=== PATIENT | female | born 1965 | race Caucasian/White ===

== ENCOUNTER 2020-07-27 15:27 | Outpatient (REF) | payer OTHER, SELFPAY ==
--- NOTE | 2020-07-27 | MM_ITS ---
EXAMINATION: MM SCREENING DIGITAL BREAST TOMOSYNTHESIS, BILATERAL CLINICAL INFORMATION: Screening. Asymptomatic. The lifetime risk of breast cancer based on the Tyrer-Cuzick Model is 22%. COMPARISON: Mammography: 02/07/2019, 01/11/2018, 12/01/2016 TECHNIQUE: Digital breast tomosynthesis is performed in both the craniocaudal and mediolateral oblique views along with computer-aided detection (CAD). Synthesized 2D images are generated from the tomosynthesis. FINDINGS: The breasts are heterogeneously dense, which may obscure small masses (ACR BI-RADS breast composition Category c). There are no significant masses, abnormal calcifications, or other abnormalities. Parenchymal pattern is similar to prior studies. No developing density. The axilla and skin contours are unremarkable. MM/MM tomosynthesis screening BI IMPRESSION: No mammographic evidence of malignancy. ASSESSMENT: BI-RADS 1: Negative RECOMMENDATION: 1. Routine annual mammography screening. 2. The lifetime risk of breast cancer based on the Tyrer-Cuzick Model is 22%. Additional annual adjunct screening with breast MRI may be of benefit in women with a risk score of 20% or greater. This patient's information was entered into a reminder system with a target due date for their next mammogram.
== END 2020-07-27 15:28 | disposition home or self-care (01) ==
LOC: HO.MAMMO 15:27
PROVIDERS: PCP Internal Medicine; Visit Provider Internal Medicine
DX: Z12.31 Encounter for screening mammogram for malignant neoplasm of breast (principal)
CPT/HCPCS: 77063; 77067

== ENCOUNTER 2020-09-19 20:28 | Emergency (ER) | payer OTHER, SELFPAY ==
[2020-09-19 20:46] VITALS: BP 154/75; PULSE 94; RESP 18; TEMP 36.8; O2SAT 97
--- NOTE | 2020-09-19 20:54 | XR_ITS ---
EXAMINATION: PORTABLE CHEST 1 VIEW CLINICAL INFORMATION: SOB . COMPARISON: 05/14/2016. TECHNIQUE: Portable frontal view of the chest was obtained. FINDINGS: The lungs are well expanded. Coarsened reticular markings are seen bilaterally but no additional superimposed focal infiltrate, effusion, edema, or pneumothorax. Cardiac and mediastinal silhouettes are within normal limits for technique. No acute bony abnormality seen. XR/XR chest 1V IMPRESSION: Coarsened reticular markings bilaterally were not seen on the 2016 study but no other definitive acute process. Significance of this subtle finding is uncertain.
[2020-09-19 20:58] VITALS: BP 154/75; PULSE 94; RESP 18; TEMP 36.8; O2SAT 97; BMI 27.4
--- NOTE | 2020-09-19 23:43 | PC.NURSE ---
with patient at this time for primary evaluation. Will continue to monitor.
--- NOTE | 2020-09-19 23:54 | ED.URI ---
HPI - URI/Sore Throat General Chief Complaint: Upper Respiratory Symptoms Stated Complaint: SOB Time Seen by Provider: 09/19/20 20:54 Source: patient Mode of arrival: ambulatory Limitations: no limitations History of Present Illness HPI Narrative: Patient comes emergency room complaining of shortness of breath. Patient states that she was diagnosed with COVID-19 6 days ago. States that she has been doing very well. Today patient started feeling short of breath, patient is known to have asthma, she gave herself 2 albuterol palms, had no relief, then gave herself a nebulization treatment but had no relief. Patient complaining of pleuritic pain as well, states it is deep inside, unrelated to exertion Related Data Previous Rx's Medication Instructions Recorded atorvastatin 10 mg tablet 10 mg PO DAILY #90 tab 08/27/20 montelukast 10 mg tablet 10 mg PO BEDTIME #90 tab 09/11/20 Allergies Allergy/AdvReac Type Severity Reaction Status Date / Time No Known Allergies Allergy Unknown Verified 09/19/20 20:56 Review of Systems Review of Systems: Constitutional : No Weight loss, No Fever, No Chills, No Night Sweats, No Fatigue, No Malaise ENT/Mouth : No Hearing loss, No Ear Pain, No Nasal Congestion, No Sinus Pain, No Hoarseness, No sore throat, No Rhinorrhea, No Swallowing Difficulty Eyes: No Eye Pain, No Swelling, No Redness, No Foreign Body, No Discharge, No Vision Changes Cardiovascular : No Chest Pain, No SOB, No Dyspnea on Exertion, No Orthopnea, No Edema, No Palpitations Respiratory : No Cough, No Sputum, complaining of Wheezing, No Smoke Exposure, complaining of Dyspnea and pleuritic chest pain with deep inspirations, worse in the back Gastrointestinal : No Nausea, No Vomiting, No Diarrhea, No Constipation, No abdominal Pain, No Hematochezia, No Melena Genitourinary : no irregular bleeding, No Dysuria, No Urinary Frequency, No Hematuria, No Urinary Incontinence, No Urgency, No Flank Pain, No Urinary Flow Changes, No Hesitancy Musculoskeletal : No joint pain, No Myalgias, No Joint Swelling Skin : No Skin Lesions, No rash Neuro : No Weakness, No Numbness, No Paresthesias, No Loss of Consciousness, No Dizziness, No Headache Psych : No Anxiety/Panic, No Depression, No SI/HI/AH/VH, No Social Issues, Heme/Lymph: No Bruising, No Bleeding,No Lymphadenopathy Endocrine : No Polyuria, No Polydipsia, No Temperature Intolerance [facility] Past Medical History Medical History (Updated 09/20/20 @ 01:05 by Brenda Quigley MD) Asthma Patient denies medical problems Social History Social History Advance Directives: No Physical Exam Vital Signs: Vital Signs: Last Vital Signs Temp 98.3 F 09/19/20 20:58 Pulse 64 09/20/20 00:00 Resp 18 09/20/20 00:00 BP 154/92 H 09/20/20 00:00 Pulse Ox 99 09/20/20 00:00 Body Mass Index 27.4 Appearance: Alert. Oriented X3. No acute distress. Anxious Eyes: Pupils equal, round and reactive to light. ENT: Pharynx normal. Neck: Normal inspection. Neck supple. No lymph nodes noted. No crepitus CVS: Normal heart rate and rhythm. Pulses normal. Normal S1 and S2, no reproducible chest pain or back possible patient Respiratory: No respiratory distress. Breath sounds normal. No Wheezing. No rales Abdomen: Soft and nontender. No rigidity. No distention. good BS x4 Skin: Skin warm and dry. Normal skin color. Normal skin turgor. Extremities: No lower extremity edema. No lower extremity edema. No Lacerations. No Rash Neuro: Oriented X 3. No motor deficit. No sensory deficit. Moving all extermities. No slurred speech. Course Course Course Narrative: Patient's labs negative, D-dimer negative. Patient's pain likely secondary to pleurisy. Wells score for PE: 0 MDM - URI/Sore Throat Lab Data Result diagrams: 09/20/20 00:29 09/20/20 00:28 Labs: Lab Results 09/20/20 09/20/20 09/20/20 Range/Units 00:28 00:28 00:29 WBC 6.3 (4.8-10.8) X10*3/uL RBC 4.46 (4.20-5.50) X10*6/uL Hgb 12.8 (12.0-16.0) g/dl Hct 40.0 (37-47) % MCV 89.7 (80-98) fL MCH 28.7 (27.0-33.0) pg MCHC 32.0 (31.0-35.0) g/dl RDW 13.6 (11.0-16.0) % Plt Count 202 (160-400) X10*3/uL MPV 11.3 (9.4-12.3) fL Immature Gran % (Auto) 0.3 (0.0-0.4) % Neut % (Auto) 59.0 (45-73) % Lymph % (Auto) 28.0 (20-40) % [place] % (Auto) 11.0 (2-11) % Eos % (Auto) 1.4 (0-4) % Baso % (Auto) 0.3 (0-2) % Lymph # (Auto) 1.8 (1.2-4.9) X10*3/uL [place] # (Auto) 0.7 (0.1-1.2) X10*3/uL Eos # (Auto) 0.1 (0.0-0.4) X10*3/uL Baso # (Auto) 0.0 (0.0-0.2) X10*3/uL Abs Immat Gran (auto) 0.02 (0.00-0.03) X10*3/uL Absolute Neuts (auto) 3.7 (2.0-8.3) X10*3/uL Absolute Nucleated RBC 0.000 (0.0-0.012) X10*3/uL Nucleated RBC % (auto) 0.0 (0.0-0.2) /100WBC D-Dimer < 200 NG/ML Sodium 138 (135-145) mmol/L Potassium 3.7 (3.3-5.1) mmol/l Chloride 104 (96-108) mmol/L Carbon Dioxide 22 (22-29) mmol/L Anion Gap 16 (12-20) BUN 14 (9-16) mg/dL Creatinine 0.73 (0.5-1.4) mg/dL Estim Creat Clear Calc 89.1 Estimated GFR > 60 Random Glucose 103 (60-115) mg/dL Calcium 8.7 (8.4-10.2) mg/dL Imaging Data Chest x-ray: Radiologist's impression: The lungs are well expanded. Coarsened reticular markings are seen bilaterally but no additional superimposed focal infiltrate, effusion, edema, or pneumothorax. Cardiac and mediastinal silhouettes are within normal limits for technique. No acute bony abnormality seen. XR/XR chest 1V IMPRESSION: Coarsened reticular markings bilaterally were not seen on the 2016 study but no other definitive acute process. Significance of this subtle finding is uncertain. Discharge Plan Discharge Clinical Impression: Pleurisy Patient Disposition: Home, Self-Care Instructions: Pleurisy (ED) Additional Instructions: You may take Tylenol and alternate it with ibuprofen for pain. Please follow-up with your primary care physician tomorrow. If you have any worsening or new symptoms, please return to the emergency room or call 911 Prescriptions: No Action atorvastatin 10 mg tablet 10 mg PO DAILY Qty: 90 RF: 2 montelukast 10 mg tablet 10 mg PO BEDTIME Qty: 90 RF: 1
[2020-09-20] VITALS: BP 154/92; PULSE 64; RESP 18; O2SAT 99
[2020-09-20 00:43] LABS: MANUAL DIFF FLAG NO
[2020-09-20 00:44] LABS: Basophils Percent Auto 0.3 % (0-2); Eosinophils Absolute Auto 0.1 X10*3/uL (0.0-0.4); Eosinophils Percent Auto 1.4 % (0-4); Hemoglobin 12.8 g/dl (12.0-16.0); Imm Gran Abs Auto 0.02 X10*3/uL (0.00-0.03); Imm Gran Pct Auto 0.3 % (0.0-0.4); Lymphocytes Absolute Auto 1.8 X10*3/uL (1.2-4.9); Mean Corpuscular Hemoglobin 28.7 pg (27.0-33.0); Mean Corpuscular Volume 89.7 fL (80-98); Mean Platelet Volume 11.3 fL (9.4-12.3); Monocytes Absolute Auto 0.7 X10*3/uL (0.1-1.2); Neutrophils Absolute Auto 3.7 X10*3/uL (2.0-8.3); Platelet Count 202 X10*3/uL (160-400); Red Blood Count 4.46 X10*6/uL (4.20-5.50); Red Cell Distribution Width 13.6 % (11.0-16.0); White Blood Count 6.3 X10*3/uL (4.8-10.8)
[2020-09-20 00:54] LABS: D Dimer < 200 NG/ML
[2020-09-20 01:06] LABS: Anion Gap 16 (12-20); Blood Urea Nitrogen 14 mg/dL (9-16); Calcium 8.7 mg/dL (8.4-10.2); Carbon Dioxide 22 mmol/L (22-29); Chloride 104 mmol/L (96-108); Creatinine Clr Calc Pharmacy 89.1; Estimated Glomerular Filt Rate > 60; Glucose Random 103 mg/dL (60-115); Potassium 3.7 mmol/l (3.3-5.1); Sodium 138 mmol/L (135-145)
[2020-09-20] MEDS: dexAMETHasone 6 MG TABLET PO (01:18)
== END 2020-09-20 02:07 | disposition home or self-care (01) ==
PROVIDERS: Emergency Provider Emergency Medicine; PCP Internal Medicine
DX: R09.1 Pleurisy (principal); J45.909 Unspecified asthma, uncomplicated; Z86.16 Personal history of COVID-19; Z79.899 Other long term (current) drug therapy
CPT/HCPCS: 36415; 71045; 80048; 85025; 85379; 99283; 99284; J8540

== ENCOUNTER 2020-09-21 14:01 | Emergency (ER) | payer OTHER, SELFPAY ==
--- NOTE | 2020-09-21 14:46 | XR_ITS ---
EXAMINATION: XR CHEST CLINICAL INFORMATION: Shortness of breath. Covid positive. COMPARISON: Previous chest x-ray 09/19/2020 TECHNIQUE: Frontal view of the chest was obtained. FINDINGS: The cardiac and mediastinal contours are stable. There are increased coarse reticular markings seen in the lungs similar to previous recent chest x-ray. No definite infiltrate is seen. There is no pleural effusion or pneumothorax. Bony structures are unremarkable. XR/XR chest 1V IMPRESSION: Increased coarse reticular markings similar to recent exam. No infiltrate seen.
[2020-09-21 15:15] VITALS: BP 160/84; PULSE 67; RESP 18; TEMP 36.7; O2SAT 98; BMI 29.2
--- NOTE | 2020-09-21 15:40 | ED_ITS ---
HPI - SOB/Dyspnea General Chief Complaint: Dyspnea Stated Complaint: sob - covid+ Time Seen by Provider: 09/21/20 14:46 Source: patient Mode of arrival: ambulatory Limitations: no limitations History of Present Illness HPI Narrative: 55yoF c PMHx of asthma, bronchitis and pulmonary embolism was positive for COVID diagnosed 9 days ago presenting to the ED with complaints of persistent shortness of breath/wheezing despite taking her albuterol inhalers and nebulizer machines. Reports that she called her primary care provider today and started her on a taper prednisone she took 40 mg today. She was seen here on 09/20/2020 and had a full workup including a D-dimer which was negative and all other labs are within normal limits. She had a negative chest x-ray. Sent home with symptomatic treatment. Is not on any antibiotics. Reports she is very anxious about the diagnosis of having COVID. Denies any fevers, chills, dizziness, headaches, changes in vision, sore throat, chest pain, dyspnea on exertion, orthopnea, palpitations, lower extremity edema, symptoms or any other symptoms complaints or concerns at this time. Denies any SI/HI/auditory visual hallucinations thoughts of self-injury. Related Data Previous Rx's Medication Instructions Recorded atorvastatin 10 mg tablet 10 mg PO DAILY #90 tab 08/27/20 montelukast 10 mg tablet 10 mg PO BEDTIME #90 tab 09/11/20 prednisone 10 mg tablet See Rx Instructions PO DAILY #20 09/20/20 tab azithromycin See Rx Instructions .ROUTE 09/21/20 .COMPLEX #6 tab lorazepam [Ativan] 1 mg PO TID PRN #10 tab 09/21/20 Allergies Allergy/AdvReac Type Severity Reaction Status Date / Time No Known Allergies Allergy Unknown Verified 09/21/20 15:15 Review of Systems Review of Systems: Constitutional : No Fever, No Chills, No fatigue, No Malaise ENT/Mouth : No sore throat, No runny nose Eyes: No Discharge Cardiovascular : No Chest Pain, + SOB Respiratory : No Cough, No Sputum, No Wheezing, No Smoke Exposure, No Dyspnea Gastrointestinal : No Nausea, No Vomiting, No Diarrhea Genitourinary : No irregular bleeding, No Dysuria, No Urinary Frequency, No Hematuria, No Urinary Incontinence, No Urgency, No Flank Pain, Musculoskeletal : No Myalgia Skin : No rash Neuro : No Headache Yes all other systems are reviewed and are negative [facility] Past Medical History Attestation statement: The following information was validated with the patient. Medical History Asthma Patient denies medical problems Social History Social History Advance Directives: No Advance Directives Information Provided: No Physical Exam Vital Signs: Vital Signs: Last Vital Signs Temp 98.1 F 09/21/20 15:15 Pulse 67 09/21/20 15:15 Resp 18 09/21/20 15:15 BP 160/84 H 09/21/20 15:15 Pulse Ox 98 09/21/20 15:15 Body Mass Index 29.2 vital signs have been reviewed as normal and appeared to be correct. Blood pressure normal. Heart rate normal. Respiration rate normal. Temperature normal. Oxygen saturation normal. Appearance: Alert. Patient very anxious and tearful. Oriented X3. No acute distress. Head: Normal external exam. Normocephalic. Atraumatic. Eyes: PERRLA. EOMI. Conjunctiva and sclera normal. Eyelids normal. ENT: EAC normal. TM's Normal. Pharynx normal. Uvula midline. Moist mucous membranes. No trismus noted. No drooling noted. No muffled voice noted. Neck: Normal inspection. Neck supple. FROM. No adenopathy. Thyroid Normal. No meningeal signs. No neck mass noted. CVS: Normal heart rate and rhythm. Heart sound normal. No murmurs noted. Pulses normal throughout. Respiratory: No respiratory distress. Painless inspiration. Breath sounds normal. No wheezes/rales/rhonchi noted. Chest nontender. No accessory muscle usage noted or decreased air movement noted. Back: Full range of motion noted. Skin: Skin warm and dry. Normal skin color. Normal skin turgor. No rashes/lesions/lacerations noted. Extremities: No lower extremity edema. Extremities exhibit normal range of motion. Extremities nontender. Neuro: Oriented X 3. No motor deficit. No sensory deficit. Reflexes normal. Course Course Course Narrative: 55yoF c PMHx of asthma, bronchitis and pulmonary embolism was positive for COVID diagnosed 9 days ago presenting to the ED with complaints of persistent shortness of breath/wheezing despite taking her albuterol inhalers and nebulizer machines. Reports that she called her primary care provider today and started her on a taper prednisone she took 40 mg today. - patient had a full workup yesterday including a D-dimer was negative. - repeat chest x-ray negative for any acute processes only chronic changes. - I discussed with the patient that she should continue monitor her oxygen saturations at this time there at 97-98% on room air even with walking it does not drop. I explained her that she needs to measure this with walking. I explained to her that she needs to keep taking her prednisone, her albuterol inhalers and nebulizer solution treatments. - will DC home with a short course of Ativan and antibiotics and instructions return if any new or worsening symptoms. Patient understands agrees the plan. MDM - SOB/Dyspnea Medical Records Attestation: I reviewed the patient's medical records. Lab Data Attestation: I reviewed the patient's lab results. Imaging Data Chest x-ray: Attestation: I personally reviewed and interpreted this imaging study as follows: Radiologist's impression: FINDINGS: The cardiac and mediastinal contours are stable. There are increased coarse reticular markings seen in the lungs similar to previous recent chest x-ray. No definite infiltrate is seen. There is no pleural effusion or pneumothorax. Bony structures are unremarkable. XR/XR chest 1V IMPRESSION: Increased coarse reticular markings similar to recent exam. No infiltrate seen. Discharge Plan Discharge Clinical Impression: COVID-19, Anxiety Patient Disposition: Home, Self-Care Instructions: Anxiety (ED), COVID-19 (Coronavirus Disease 2019) (ED) Prescriptions: New azithromycin 250 mg tablet See Rx Instructions .ROUTE .COMPLEX Qty: 6 RF: 0 lorazepam [Ativan] 1 mg tablet 1 mg PO TID PRN (Reason: anxiety) Qty: 10 RF: 0 No Action atorvastatin 10 mg tablet 10 mg PO DAILY Qty: 90 RF: 2 montelukast 10 mg tablet 10 mg PO BEDTIME Qty: 90 RF: 1 prednisone 10 mg tablet See Rx Instructions PO DAILY Qty: 20 RF: 0 Referrals: Karina Ward MD [Primary Care Provider] - 2 days Stand Alone Forms: Work/School Release Print Language: Ethiopian
== END 2020-09-21 16:09 | disposition home or self-care (01) ==
PROVIDERS: Emergency Provider Emergency Medicine; PCP Internal Medicine
DX: U07.1 COVID-19 (principal); R06.02 Shortness of breath; F41.1 Generalized anxiety disorder; F43.0 Acute stress reaction
CPT/HCPCS: 71045; 99283

== ENCOUNTER 2020-10-11 08:17 | Outpatient (REF) | payer OTHER, SELFPAY ==
[2020-10-11 12:19] LABS: Alanine Aminotransferase 72 U/L (0-31); Anion Gap 17 (12-20); Aspartate Amino Transferase 41 U/L (5-31); Blood Urea Nitrogen 18 mg/dL (9-16); Calcium 8.8 mg/dL (8.4-10.2); Carbon Dioxide 26 mmol/L (22-29); Chloride 104 mmol/L (96-108); Cholesterol 207 mg/dL; Estimated Glomerular Filt Rate > 60; Glucose Fasting 95 mg/dL (60-99); HDL Cholesterol 59 mg/dL; LDL Cholesterol Calculated 116 mg/dl; Potassium 4.5 mmol/L (3.3-5.1); Sodium 142 mmol/L (135-145); Triglycerides 161 mg/dL
== END 2020-10-11 08:18 | disposition home or self-care (01) ==
LOC: HO.HMGCLDS 08:17
PROVIDERS: PCP Internal Medicine; Visit Provider Internal Medicine
DX: E78.2 Mixed hyperlipidemia (principal); J45.20 Mild intermittent asthma, uncomplicated
CPT/HCPCS: 36415; 80048; 80061; 84450; 84460

== ENCOUNTER 2020-10-27 19:43 | Emergency (ER) | payer OTHER, SELFPAY ==
--- NOTE | 2020-10-27 | ECG_ITS ---
Test Reason : CHEST PAIN Blood Pressure : / mmHG Vent. Rate : 069 BPM Atrial Rate : 069 BPM P-R Int : 152 ms QRS Dur : 072 ms QT Int : 398 ms P-R-T Axes : 021 039 024 degrees QTc Int : 426 ms Normal sinus rhythm Normal ECG When compared with ECG of 04-APR-2016 17:57, No significant change was found Referred By: Trent Haque Electronically Signed By:BRIONNA BRITTON MD
--- NOTE | ~2020-10-27 | CT_ITS ---
EXAMINATION: CT ANGIOGRAM OF THE CHEST WITH AND WITHOUT CONTRAST (CT PULMONARY ANGIOGRAM FOR PE) CLINICAL INFORMATION: Reason for Exam cp post covid COMPARISON: CTA chest 11/09/2014 TECHNIQUE: Prior to contrast administration, noncontrast localization images were obtained. Subsequently, multidetector volumetric imaging was performed from the thoracic inlet to below the diaphragms following the administration of 65 mL Omnipaque 350 intravenous contrast. No contrast reaction reported Sagittal, coronal, and MIP oblique sagittal reformatted images were obtained on the CT workstation, uploaded to PACS, and reviewed. This CT examination was performed using dose optimization techniques as appropriate, variously including the following: *Automated exposure control *Adjustment of mA and/or kV according to patient size (this includes techniques or standardized protocols for targeted exams where dose is matched to indication/reason for exam; i.e. extremities or head) *Use of iterative reconstruction technique Total exam dose-length product 189 mGy-cm FINDINGS: QUALITY OF STUDY/CONTRAST BOLUS: Satisfactory. PULMONARY ARTERIES: No central or segmental pulmonary emboli. THORACIC AORTA: No aneurysm or dissection. LUNG: No focal consolidation, nodules or masses. PLEURA: No pleural effusion or pneumothorax. MEDIASTINUM: Normal heart size. No pericardial effusion. No hilar or mediastinal lymphadenopathy. No evidence of septal bowing or right heart strain. CHEST WALL/AXILLA: No axillary or internal mammary lymphadenopathy. OSSEOUS STRUCTURES: No acute or suspicious osseous abnormality. UPPER ABDOMEN: Small hiatal hernia is present No reflux of contrast into the hepatic veins to suggest elevated right heart pressures. CT/CT angio chest PE protocol IMPRESSION: 1. No evidence of pulmonary emboli 2. No evidence of significant pulmonary parenchymal disease to suggest COVID pulmonary disease VTE: negative
[2020-10-27 19:45] VITALS: BP 135/85; PULSE 73; RESP 16; TEMP 36.6; O2SAT 94; BMI 27.6
[2020-10-27 20:00] VITALS: BP 142/80; PULSE 77; RESP 14; TEMP 36.6; O2SAT 96
--- NOTE | 2020-10-27 21:05 | ED.CHESTPAIN ---
HPI - Chest Pain General Chief Complaint: Chest Pain Stated Complaint: Chest pain Time Seen by Provider: 10/27/20 21:05 Source: patient Mode of arrival: ambulatory Limitations: no limitations History of Present Illness HPI narrative: Patient's history of COVID infection in 09/22 with history of asthma been feeling short of breath since then on prednisone complaining of 3 days of sharp chest pain especially in the left side and decrease air in the lungs since COVID. Patient denied any fever otherwise feeling fine. Patient denies any coronary artery disease history no history of chest pain in the past no palpitations MD complaint: chest pain Onset (ago): day(s) (3) Timing of current episode: episodic Prior episodes: No Onset: during rest Pain location: left chest Pain radiation: none Severity: mild Quality: sharp Exacerbating factors: nothing and palpation Context: recent illness Associated symptoms: dyspnea Treatment prior to arrival: none Related Data Previous Rx's Medication Instructions Recorded atorvastatin 10 mg tablet 10 mg PO DAILY #90 tab 08/27/20 montelukast 10 mg tablet 10 mg PO BEDTIME #90 tab 09/11/20 lorazepam [Ativan] 1 mg PO TID PRN #10 tab 09/21/20 budesonide-formoterol HFA 160 2 puff INHALATION Q12H #10.2 g 10/21/20 mcg-4.5 mcg/actuation aerosol inhaler Allergies Allergy/AdvReac Type Severity Reaction Status Date / Time No Known Allergies Allergy Unknown Verified 10/21/20 11:18 Review of Systems Review of Systems: Constitutional : No Weight loss, No Fever, No Chills ENT/Mouth : No sore throat, No Rhinorrhea Eyes: No Eye Pain, No Swelling Cardiovascular : + Chest Pain, no palpitations Respiratory : No Cough, No Sputum, +d shortness of breath Gastrointestinal : no Nausea, No Vomiting, No Diarrhea, No abdominal Pain, no black stools Genitourinary : No Dysuria, No Urinary Frequency Musculoskeletal : No joint pain, No Myalgias, No Joint Swelling Skin : No Skin Lesions, No rash Neuro : No Weakness, No Numbness, No Dizziness, No Headache Psych : No Anxiety/Panic, No Depression Heme/Lymph: No Bruising, No Lymphadenopathy Endocrine : No Polyuria, No Polydipsia All other systems reviewed and are negative PMFSH Past Medical History Medical History History of COVID-19 Menopause Mild intermittent asthma Mixed dyslipidemia Patient denies medical problems Pulmonary embolism Surgical History H/O breast biopsy H/O hemorrhoidectomy History of partial hysterectomy Family History Family History Father Diabetes mellitus Mother Arthritis Maternal Grandmother Breast cancer Maternal Aunt Breast cancer Brother No problems noted. Brother No problems noted. Sister No problems noted. Social History Social History Alcohol intake: never Smoking Status: Never smoker Advance Directives: No Physical Exam Vital Signs: Vital Signs: Last Vital Signs Temp 97.9 F 10/27/20 20:00 Pulse 77 10/27/20 20:00 Resp 14 10/27/20 20:00 BP 142/80 H 10/27/20 20:00 Pulse Ox 96 10/27/20 20:00 Body Mass Index 27.6 Appearance: Alert. Oriented X3. No acute distress. Eyes: Pupils equal, round and reactive to light. ENT: Pharynx normal. Neck: Normal inspection. Neck supple. CVS: Normal heart rate and rhythm. Pulses normal. Respiratory: No respiratory distress. Breath sounds normal. Tender to touch left 2nd intercostal space Abdomen: Soft and nontender. Bowel sounds are present, no mass palpable, no CVA tenderness Skin: Skin warm and dry. Normal skin color. Normal skin turgor. Extremities: No lower extremity edema. No calf tenderness Neuro: Oriented X 3. No motor deficit. No sensory deficit. MDM - Chest Pain MDM Narrative Medical decision making narrative: Patient has atypical chest pain unlikely cardiac origin EKG is normal cardiac enzymes negative we did CTA chest to rule out PE as she had history of COVID-19 which was also negative for any blood clots or any lung changes from COVID will discharge patient home Medical Records Data Attestation: I reviewed the patient's medical records. Lab Data Attestation: I reviewed the patient's lab results. Result diagrams: 10/27/20 21:25 10/27/20 21:25 Labs: Lab Results 10/27/20 10/27/20 10/27/20 Range/Units 21:25 21:25 21:25 WBC 9.5 (4.8-10.8) X10*3/uL RBC 4.53 (4.20-5.50) X10*6/uL Hgb 13.1 (12.0-16.0) g/dl Hct 40.7 (37-47) % MCV 89.8 (80-98) fL MCH 28.9 (27.0-33.0) pg MCHC 32.2 (31.0-35.0) g/dl RDW 13.2 (11.0-16.0) % Plt Count 212 (160-400) X10*3/uL MPV 12.0 (9.4-12.3) fL Immature Gran % (Auto) 0.3 (0.0-0.4) % Neut % (Auto) 68.7 (45-73) % Lymph % (Auto) 21.3 (20-40) % [place] % (Auto) 8.5 (2-11) % Eos % (Auto) 0.9 (0-4) % Baso % (Auto) 0.3 (0-2) % Lymph # (Auto) 2.0 (1.2-4.9) X10*3/uL [place] # (Auto) 0.8 (0.1-1.2) X10*3/uL Eos # (Auto) 0.1 (0.0-0.4) X10*3/uL Baso # (Auto) 0.0 (0.0-0.2) X10*3/uL Abs Immat Gran (auto) 0.03 (0.00-0.03) X10*3/uL Absolute Neuts (auto) 6.5 (2.0-8.3) X10*3/uL Absolute Nucleated RBC 0.000 (0.0-0.012) X10*3/uL Nucleated RBC % (auto) 0.0 (0.0-0.2) /100WBC Sodium 141 (135-145) mmol/L Potassium 4.4 (3.3-5.1) mmol/L Chloride 103 (96-108) mmol/L Carbon Dioxide 27 (22-29) mmol/L Anion Gap 15 (12-20) BUN 16 (9-16) mg/dL Creatinine 0.75 (0.5-1.4) mg/dL Estim Creat Clear Calc 87.0 Estimated GFR > 60 Random Glucose 104 (60-115) mg/dL Calcium 9.5 D (8.4-10.2) mg/dL Troponin I High Sens < 3.5 (<3.5-17.0) ng/L ECG Data ECG #1: Attestation: I personally reviewed and interpreted this ECG as follows: Interpretation: Normal sinus rhythm heart rate 69 beats per minute normal intervals normal axis no acute ST T wave changes impression normal EKG Discharge Plan Discharge Clinical Impression: Atypical chest pain Patient Disposition: Home, Self-Care Instructions: Chest Pain (ED) Additional Instructions: The chest pain is likely musculoskeletal origin. Follow up with PCP Prescriptions: No Action atorvastatin 10 mg tablet 10 mg PO DAILY Qty: 90 RF: 2 montelukast 10 mg tablet 10 mg PO BEDTIME Qty: 90 RF: 1 lorazepam [Ativan] 1 mg tablet 1 mg PO TID PRN (Reason: anxiety) Qty: 10 RF: 0 budesonide-formoterol [Symbicort] 160-4.5 mcg/actuation HFA aerosol inhaler 2 puff inhalation Q12H Qty: 10.2 RF: 0
[2020-10-27 21:31] LABS: MANUAL DIFF FLAG NO
[2020-10-27 21:37] LABS: Basophils Percent Auto 0.3 % (0-2); Eosinophils Absolute Auto 0.1 X10*3/uL (0.0-0.4); Eosinophils Percent Auto 0.9 % (0-4); Hematocrit 40.7 % (37-47); Hemoglobin 13.1 g/dl (12.0-16.0); Imm Gran Abs Auto 0.03 X10*3/uL (0.00-0.03); Imm Gran Pct Auto 0.3 % (0.0-0.4); Lymphocytes Percent Auto 21.3 % (20-40); Mean Corpuscular HGB Conc 32.2 g/dl (31.0-35.0); Mean Corpuscular Hemoglobin 28.9 pg (27.0-33.0); Mean Corpuscular Volume 89.8 fL (80-98); Monocytes Absolute Auto 0.8 X10*3/uL (0.1-1.2); Monocytes Percent Auto 8.5 % (2-11); Neutrophils Absolute Auto 6.5 X10*3/uL (2.0-8.3); Neutrophils Percent Auto 68.7 % (45-73); Platelet Count 212 X10*3/uL (160-400); Red Blood Count 4.53 X10*6/uL (4.20-5.50); Red Cell Distribution Width 13.2 % (11.0-16.0); White Blood Count 9.5 X10*3/uL (4.8-10.8)
[2020-10-27 21:55] LABS: Anion Gap 15 (12-20); Blood Urea Nitrogen 16 mg/dL (9-16); Calcium 9.5 mg/dL (8.4-10.2); Carbon Dioxide 27 mmol/L (22-29); Chloride 103 mmol/L (96-108); Estimated Glomerular Filt Rate > 60; Glucose Random 104 mg/dL (60-115); Potassium 4.4 mmol/L (3.3-5.1); Sodium 141 mmol/L (135-145)
[2020-10-27 22:00] VITALS: BP 128/74; PULSE 78; RESP 16; TEMP 36.7; O2SAT 99
[2020-10-27 22:00] LABS: Troponin-I High Sensitivity < 3.5 ng/L (<3.5-17.0)
[2020-10-27] MEDS: iohexoL 350 MG/ML 100 ML INFUS..BTL IV (22:12)
== END 2020-10-27 23:14 | disposition home or self-care (01) ==
PROVIDERS: Emergency Provider Internal Medicine; PCP Internal Medicine
DX: R07.89 Other chest pain (principal); J45.909 Unspecified asthma, uncomplicated; Z86.16 Personal history of COVID-19; Z86.711 Personal history of pulmonary embolism; Z79.02 Long term (current) use of antithrombotics/antiplatelets; Z79.899 Other long term (current) drug therapy
CPT/HCPCS: 36415; 71275; 80048; 84484; 85025; 93005; 99284; Q9967

== ENCOUNTER 2021-02-07 17:51 | Emergency (ER) | payer OTHER, SELFPAY ==
--- NOTE | ~2021-02-07 | CT_ITS ---
EXAMINATION: CT ANGIOGRAM OF THE CHEST WITH AND WITHOUT CONTRAST (CT PULMONARY ANGIOGRAM FOR PE) CLINICAL INFORMATION: Reason for Exam sob post covid COMPARISON: CT angiogram chest 10/27/2020 TECHNIQUE: Prior to contrast administration, noncontrast localization images were obtained. Subsequently, multidetector volumetric imaging was performed from the thoracic inlet to below the diaphragms following the administration of 65 mL Omnipaque 350 intravenous contrast. No contrast reaction reported Sagittal, coronal, and MIP oblique sagittal reformatted images were obtained on the CT workstation, uploaded to PACS, and reviewed. This CT examination was performed using dose optimization techniques as appropriate, variously including the following: *Automated exposure control *Adjustment of mA and/or kV according to patient size (this includes techniques or standardized protocols for targeted exams where dose is matched to indication/reason for exam; i.e. extremities or head) *Use of iterative reconstruction technique Total exam dose-length product 286 mGy-cm FINDINGS: QUALITY OF STUDY/CONTRAST BOLUS: Satisfactory. PULMONARY ARTERIES: No central or segmental pulmonary emboli. THORACIC AORTA: No aneurysm or dissection. LUNG: No focal consolidation, nodules or masses. Some nonspecific dependent groundglass changes are present, more so than previous. PLEURA: No pleural effusion or pneumothorax. MEDIASTINUM: Normal heart size. No pericardial effusion. No hilar or mediastinal lymphadenopathy. No evidence of septal bowing or right heart strain. CHEST WALL/AXILLA: No axillary or internal mammary lymphadenopathy. OSSEOUS STRUCTURES: No acute or suspicious osseous abnormality. UPPER ABDOMEN: Unremarkable. No reflux of contrast into the hepatic veins to suggest elevated right heart pressures. CT/CT angio chest PE protocol IMPRESSION: 1. No acute intrathoracic disease 2. No evidence of pulmonary emboli 3. No evidence of Covid pneumonia 4. A cause for the patient's shortness of breath has not been found VTE: negative
[2021-02-07 18:05] VITALS: BP 135/79; PULSE 78; RESP 20; TEMP 36.8; O2SAT 100; BMI 27.3
[2021-02-07 20:37] VITALS: BP 150/83; PULSE 69; RESP 20; O2SAT 100
--- NOTE | 2021-02-07 20:37 | ED.ASTHMA ---
HPI - Asthma General Chief Complaint: Asthma Stated Complaint: asthma Time Seen by Provider: 02/07/21 20:37 Source: patient Mode of arrival: ambulatory Limitations: no limitations History of Present Illness HPI Narrative: Patient history of asthma rarely uses inhaler feeling short of breath for last few days using inhaler not getting enough air saturating 100% at room air on arrival was COVID positive in September that time CT a chest was negative for any infiltrate or PE patient denies any leg pain or swelling no chest pain Related Data Home Medications Medication Instructions Recorded Confirmed albuterol sulfate 2.5 mg INHALATION Q4-6H PRN 02/09/21 02/10/21 Previous Rx's Medication Instructions Recorded atorvastatin 10 mg tablet 10 mg PO DAILY #90 tab 08/27/20 montelukast 10 mg tablet 10 mg PO BEDTIME #90 tab 09/11/20 lorazepam [Ativan] 1 mg PO TID PRN #10 tab 09/21/20 budesonide-formoterol HFA 160 2 puff INHALATION Q12H #10.2 g 01/06/21 mcg-4.5 mcg/actuation aerosol inhaler albuterol sulfate 90 mcg/actuation 2 puff INHALATION Q4-6H PRN #8.5 g 02/06/21 aerosol inhaler prednisone 40 mg PO DAILY #10 tab 02/07/21 inhalational spacing device #1 ea 02/09/21 Allergies Allergy/AdvReac Type Severity Reaction Status Date / Time No Known Allergies Allergy Unknown Verified 02/10/21 00:04 Review of Systems Review of Systems: Constitutional : No Weight loss, No Fever, No Chills ENT/Mouth : No sore throat, No Rhinorrhea Eyes: No Eye Pain, No Swelling Cardiovascular : No Chest Pain, no palpitations Respiratory : No Cough, No Sputum, + shortness of breath Gastrointestinal : no Nausea, No Vomiting, No Diarrhea, No abdominal Pain, no black stools Genitourinary : No Dysuria, No Urinary Frequency Musculoskeletal : No joint pain, No Myalgias, No Joint Swelling Skin : No Skin Lesions, No rash Neuro : No Weakness, No Numbness, No Dizziness, No Headache Psych : No Anxiety/Panic, No Depression Heme/Lymph: No Bruising, No Lymphadenopathy Endocrine : No Polyuria, No Polydipsia All other systems reviewed and are negative PMFSH Past Medical History Medical History 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 Brother No problems noted. Sister No problems noted. Social History Social History Alcohol intake: never Patient Tobacco Use Status: Never used Tobacco Physical Exam Vital Signs: Vital Signs: Last Vital Signs Temp 98.2 F 02/07/21 18:05 Pulse 80 02/07/21 22:38 Resp 20 02/07/21 22:38 BP 116/77 02/07/21 22:38 Pulse Ox 100 02/07/21 22:38 Body Mass Index 27.3 Appearance: Alert. Oriented X3. No acute distress. Eyes: PERRLA, No Nystagmus ENT: Pharynx normal. Oral Mucosa moist Neck: Normal inspection. Neck supple. CVS: Normal heart rate and rhythm. Pulses normal. Respiratory: No respiratory distress. Decrease entry bilateral, no wheezing/rales/rhonchi Abdomen: Soft and nontender. Bowel sounds are present, no mass palpable, no CVA tenderness Skin: Skin warm and dry. Normal skin color. Normal skin turgor. Extremities: No lower extremity edema. No calf tenderness Neuro: Oriented X 3. No motor deficit. No sensory deficit.No cerebellar signs , cranial nerves II-XII intact MDM - Asthma Medical Records Medical records narrative: Patient negative workup CTA chest negative for infiltrate or PE likely patient has asthma will discharge patient home on prednisone and albuterol Lab Data Attestation: I reviewed the patient's lab results. Result diagrams: 02/07/21 20:53 02/07/21 20:53 Labs: Lab Results 02/07/21 02/07/21 Range/Units 20:53 20:53 WBC 9.7 (4.8-10.8) X10*3/uL RBC 4.42 (4.20-5.50) X10*6/uL Hgb 12.5 (12.0-16.0) g/dl Hct 38.9 (37-47) % MCV 88.0 (80-98) fL MCH 28.3 (27.0-33.0) pg MCHC 32.1 (31.0-35.0) g/dl RDW 13.0 (11.0-16.0) % Plt Count 197 (160-400) X10*3/uL MPV 11.5 (9.4-12.3) fL Immature Gran % (Auto) 0.3 (0.0-0.4) % Neut % (Auto) 64.2 (45-73) % Lymph % (Auto) 25.0 (20-40) % [place] % (Auto) 8.8 (2-11) % Eos % (Auto) 1.2 (0-4) % Baso % (Auto) 0.5 (0-2) % Lymph # (Auto) 2.4 (1.2-4.9) X10*3/uL [place] # (Auto) 0.9 (0.1-1.2) X10*3/uL Eos # (Auto) 0.1 (0.0-0.4) X10*3/uL Baso # (Auto) 0.1 (0.0-0.2) X10*3/uL Abs Immat Gran (auto) 0.03 (0.00-0.03) X10*3/uL Absolute Neuts (auto) 6.2 (2.0-8.3) X10*3/uL Absolute Nucleated RBC 0.000 (0.0-0.012) X10*3/uL Nucleated RBC % (auto) 0.0 (0.0-0.2) /100WBC Sodium 139 (135-145) mmol/L Potassium 4.1 (3.3-5.1) mmol/L Chloride 102 (96-108) mmol/L Carbon Dioxide 26 (22-29) mmol/L Anion Gap 15 (12-20) BUN 14 (9-16) mg/dL Creatinine 0.75 (0.5-1.4) mg/dL Estim Creat Clear Calc 86.7 Estimated GFR > 60 Random Glucose 90 (60-115) mg/dL Calcium 9.6 (8.4-10.2) mg/dL Discharge Plan Discharge Clinical Impression: Asthma with acute exacerbation Qualifiers: Asthma severity: moderate Asthma persistence: persistent Qualified Code(s): J45.41 - Moderate persistent asthma with (acute) exacerbation Patient Disposition: Home, Self-Care Instructions: Asthma (ED) Additional Instructions: Taking medications as advised, and follow-up with PCP Prescriptions: New prednisone 20 mg tablet 40 mg PO DAILY Qty: 10 RF: 0 No Action atorvastatin 10 mg tablet 10 mg PO DAILY Qty: 90 RF: 2 montelukast 10 mg tablet 10 mg PO BEDTIME Qty: 90 RF: 1 budesonide-formoterol [Symbicort] 160-4.5 mcg/actuation HFA aerosol inhaler 2 puff inhalation Q12H Qty: 10.2 RF: 5 albuterol sulfate 90 mcg/actuation HFA aerosol inhaler 2 puff inhalation Q4-6H PRN (Reason: shortness of breath or wheezing) Qty: 8.5 RF: 0 lorazepam [Ativan] 1 mg tablet 1 mg PO TID PRN (Reason: anxiety) Qty: 10 RF: 0 albuterol sulfate 2.5 mg /3 mL (0.083 %) solution for nebulization 2.5 mg inhalation Q4-6H PRNRF: 0 (DME) BreatheRite MDI Spacer Spacer See Rx Instructions .ROUTE .MEDSUPPLY Qty: 1 RF: 0 Interventions: ED Discharge Assessment Last Done: 02/07/21 22:40 Discharge Date/Time: 02/07/21 22:41
[2021-02-07] MEDS: Albuterol/Iprat 2.5/0.5MG 3 ML AMPUL.NEB INHALE (20:56)
[2021-02-07 20:57] VITALS: PULSE 68; O2SAT 100
[2021-02-07 20:58] LABS: MANUAL DIFF FLAG NO
[2021-02-07 21:00] LABS: Basophils Absolute Auto 0.1 X10*3/uL (0.0-0.2); Basophils Percent Auto 0.5 % (0-2); Eosinophils Absolute Auto 0.1 X10*3/uL (0.0-0.4); Eosinophils Percent Auto 1.2 % (0-4); Hematocrit 38.9 % (37-47); Hemoglobin 12.5 g/dl (12.0-16.0); Imm Gran Abs Auto 0.03 X10*3/uL (0.00-0.03); Imm Gran Pct Auto 0.3 % (0.0-0.4); Lymphocytes Absolute Auto 2.4 X10*3/uL (1.2-4.9); Mean Corpuscular HGB Conc 32.1 g/dl (31.0-35.0); Mean Corpuscular Hemoglobin 28.3 pg (27.0-33.0); Mean Platelet Volume 11.5 fL (9.4-12.3); Monocytes Absolute Auto 0.9 X10*3/uL (0.1-1.2); Monocytes Percent Auto 8.8 % (2-11); Neutrophils Absolute Auto 6.2 X10*3/uL (2.0-8.3); Neutrophils Percent Auto 64.2 % (45-73); Platelet Count 197 X10*3/uL (160-400); Red Blood Count 4.42 X10*6/uL (4.20-5.50); White Blood Count 9.7 X10*3/uL (4.8-10.8)
[2021-02-07] MEDS: methylPREDNISolone Sod Succ 125 MG/2 ML VIAL IVPUSH (21:07)
[2021-02-07 21:30] LABS: Anion Gap 15 (12-20); Blood Urea Nitrogen 14 mg/dL (9-16); Calcium 9.6 mg/dL (8.4-10.2); Carbon Dioxide 26 mmol/L (22-29); Chloride 102 mmol/L (96-108); Creatinine Clr Calc Pharmacy 86.7; Estimated Glomerular Filt Rate > 60; Glucose Random 90 mg/dL (60-115); Potassium 4.1 mmol/L (3.3-5.1); Sodium 139 mmol/L (135-145)
[2021-02-07] MEDS: iohexoL 350 MG/ML 100 ML INFUS..BTL IV (21:44)
[2021-02-07 21:55] VITALS: BP 118/78; PULSE 82; RESP 20; O2SAT 99
[2021-02-07 22:00] VITALS: BP 116/80; PULSE 77; RESP 20; O2SAT 99
[2021-02-07 22:38] VITALS: BP 116/77; PULSE 80; RESP 20; O2SAT 100
== END 2021-02-07 22:41 | disposition home or self-care (01) ==
PROVIDERS: Emergency Provider Internal Medicine; PCP Internal Medicine
DX: J45.41 Moderate persistent asthma with (acute) exacerbation (principal); Z86.16 Personal history of COVID-19; Z86.711 Personal history of pulmonary embolism; Z79.02 Long term (current) use of antithrombotics/antiplatelets; Z79.899 Other long term (current) drug therapy
CPT/HCPCS: 36415; 71275; 80048; 85025; 94640; 96374; 99284; J2930; Q9967

== ENCOUNTER → 2021-03-17 14:25 | Outpatient (BNVA) | payer OTHER, SELFPAY | PROVIDERS: PCP Internal Medicine; Visit Provider Hospitalist ==

== ENCOUNTER 2021-03-24 07:22 | Outpatient (REF) | payer OTHER, SELFPAY ==
[2021-03-24 08:23] LABS: MANUAL DIFF FLAG NO
[2021-03-24 08:24] LABS: Basophils Percent Auto 0.3 % (0-2); Eosinophils Absolute Auto 0.1 X10*3/uL (0.0-0.4); Eosinophils Percent Auto 0.8 % (0-4); Hematocrit 40.1 % (37-47); Hemoglobin 12.8 g/dl (12.0-16.0); Imm Gran Abs Auto 0.05 X10*3/uL (0.00-0.03); Imm Gran Pct Auto 0.4 % (0.0-0.4); Lymphocytes Absolute Auto 1.3 X10*3/uL (1.2-4.9); Lymphocytes Percent Auto 10.7 % (20-40); Mean Corpuscular HGB Conc 31.9 g/dl (31.0-35.0); Mean Corpuscular Volume 87.7 fL (80-98); Mean Platelet Volume 12.1 fL (9.4-12.3); Monocytes Absolute Auto 0.9 X10*3/uL (0.1-1.2); Neutrophils Absolute Auto 10.1 X10*3/uL (2.0-8.3); Neutrophils Percent Auto 80.8 % (45-73); Platelet Count 216 X10*3/uL (160-400); Red Blood Count 4.57 X10*6/uL (4.20-5.50); Red Cell Distribution Width 13.4 % (11.0-16.0); White Blood Count 12.5 X10*3/uL (4.8-10.8)
[2021-03-24 09:10] LABS: Alanine Aminotransferase 24 U/L (0-31); Albumin Level 4.4 g/dL (3.5-5.0); Alkaline Phosphatase 121 U/L (39-117); Anion Gap 14 (12-20); Aspartate Amino Transferase 23 U/L (5-31); Bilirubin Total 0.7 mg/dL (0.0-1.0); Blood Urea Nitrogen 15 mg/dL (9-16); Calcium 9.4 mg/dL (8.4-10.2); Carbon Dioxide 25 mmol/L (22-29); Chloride 106 mmol/L (96-108); Cholesterol 203 mg/dL; Estimated Glomerular Filt Rate > 60; Glucose Fasting 91 mg/dL (60-99); HDL Cholesterol 67 mg/dL; LDL Cholesterol Calculated 116 mg/dl; Potassium 4.3 mmol/L (3.3-5.1); Sodium 141 mmol/L (135-145); Total Protein 7.5 g/dL (6.5-8.0); Triglycerides 102 mg/dL
[2021-03-24 09:22] LABS: Vitamin D 25-OH Total 45.9 ng/mL (>30)
[2021-03-24 09:56] LABS: Erythrocyte Sedimentation Rate 25 MM/HR (0-20)
[2021-03-27 22:11] LABS: Anti Nuclear Antibody Screen POSITIVE (NEGATIVE)
[2021-03-30 13:22] LABS: Asperg fumigatus Precip Abs NEGATIVE (NEGATIVE); Micropoly faeni Abs NEGATIVE (NEGATIVE); Pigeon serum Abs NEGATIVE (NEGATIVE); Saccharo pora viridis Abs NEGATIVE (NEGATIVE); Thermo candidus Abs NEGATIVE (NEGATIVE); Thermoa vulgaris #1 NEGATIVE (NEGATIVE)
== END 2021-03-24 07:23 | disposition home or self-care (01) ==
LOC: HO.LAB 07:22
PROVIDERS: PCP Internal Medicine; Visit Provider Hospitalist
DX: E78.2 Mixed hyperlipidemia (principal); J45.20 Mild intermittent asthma, uncomplicated; Z78.0 Asymptomatic menopausal state; B94.8 Sequelae of other specified infectious and parasitic diseases; J18.9 Pneumonia, unspecified organism; R91.8 Other nonspecific abnormal finding of lung field
CPT/HCPCS: 36415; 80053; 80061; 82306; 82785; 85025; 85652; 86003; 86038; 86039; 86331; 86606; 86609

== ENCOUNTER 2021-03-28 16:00 | Outpatient (REF) | payer OTHER, SELFPAY ==
--- NOTE | 2021-03-28 17:32 | PFT_ITS ---
INDICATION: Pneumonia. SPIROMETRY: The FEV1 to FVC 90% with an FEV1 of 2.98 L, which is 106% predicted, and an FVC of 3.31 L, which is 91% predicted. No significant response to bronchodilators noted. Maximum voluntary ventilation 97% predicted. LUNG VOLUMES: Total lung capacity 89% predicted with diffusion capacity of 76% predicted. COMPARISONS: None available. INTERPRETATION: No obstructive nor restrictive ventilatory defects identified. No significant response to bronchodilators noted. Normal maximum voluntary ventilation. Lung volumes are low normal, but otherwise stable and the patient does have an isolated mild diffusion impairment. Clinical correlation warranted. Mj Reece MD MR/MODL / [id number]
== END 2021-03-28 16:01 | disposition home or self-care (01) ==
LOC: HO.RESP 16:00
PROVIDERS: PCP Internal Medicine; Visit Provider Hospitalist
DX: G47.33 Obstructive sleep apnea (adult) (pediatric) (principal); J18.9 Pneumonia, unspecified organism
CPT/HCPCS: 94060; 94727; 94729

== ENCOUNTER → 2021-04-17 14:51 | Outpatient (BNVA) | payer OTHER, SELFPAY | PROVIDERS: PCP Internal Medicine; Visit Provider Hospitalist | DX: J18.9 Pneumonia, unspecified organism (principal); B94.8 Sequelae of other specified infectious and parasitic diseases; R91.8 Other nonspecific abnormal finding of lung field; G47.33 Obstructive sleep apnea (adult) (pediatric) ==

== ENCOUNTER → 2021-05-29 08:59 | Outpatient (REF) | payer OTHER, SELFPAY | LOC: HO.SL 08:59 | PROVIDERS: PCP Internal Medicine; Visit Provider Hospitalist | DX: G47.33 Obstructive sleep apnea (adult) (pediatric) (principal) | CPT/HCPCS: 95806 ==

== ENCOUNTER → 2021-06-13 14:52 | Outpatient (BNVA) | payer OTHER, SELFPAY | PROVIDERS: PCP Internal Medicine; Visit Provider Hospitalist ==

== ENCOUNTER 2021-07-31 03:02 | Emergency (ER) | payer OTHER, SELFPAY ==
--- NOTE | ~2021-07-31 | XR_ITS ---
EXAMINATION: XR CHEST CLINICAL INFORMATION: Asthma, cough, shortness of breath COMPARISON: 02/07/2021 TECHNIQUE: Frontal view of the chest was obtained. FINDINGS: The lungs are clear with no focal consolidation. No evidence of pneumothorax, pulmonary edema, or pleural effusions. The cardiomediastinal silhouette is unremarkable. No acute osseous findings. XR/XR chest 1V IMPRESSION: No acute cardiopulmonary findings.
[2021-07-31 03:20] VITALS: BP 129/90; PULSE 85; RESP 18; TEMP 36.6; O2SAT 97; BMI 27.4
[2021-07-31 03:57] LABS: COVID-19 Test Negative (Negative); IDNOW Serial# 9DD0AD1C
--- NOTE | 2021-07-31 05:44 | ED.ASTHMA ---
HPI - Asthma General Chief Complaint: Upper Respiratory Symptoms Stated Complaint: asthma Time Seen by Provider: 07/31/21 05:44 Source: patient Mode of arrival: ambulatory History of Present Illness HPI Narrative: 56-year-old female with history of asthma presents with awakening from sleep and feeling short of breath for which she took repeated albuterol treatments and did not feel that she was getting better in so came into the emergency room. Otherwise, she states that she is COVID-19 vaccinated and reports at time of interview that she is feeling much better. She denies any associated fever, chills and at this time is declining a short course of steroids. Related Data Home Medications Medication Instructions Recorded Confirmed albuterol sulfate 2.5 mg INHALATION Q4-6H PRN 02/09/21 03/21/21 Previous Rx's Medication Instructions Recorded lorazepam 1 mg tablet (Ativan) 1 mg PO TID PRN #10 tab 09/21/20 budesonide-formoterol HFA 160 2 puff INHALATION Q12H #10.2 g 01/06/21 mcg-4.5 mcg/actuation aerosol inhaler (Symbicort) albuterol sulfate 90 mcg/actuation 2 puff INHALATION Q4-6H PRN #8.5 g 02/06/21 aerosol inhaler prednisone 20 mg tablet 40 mg PO DAILY #10 tab 02/07/21 inhalational spacing device #1 ea 02/09/21 (BreatheRite MDI Spacer) montelukast 10 mg tablet 10 mg PO BEDTIME #90 tab 02/13/21 tiotropium bromide 2.5 2 puff INHALATION DAILY 30 Days #1 03/17/21 mcg/actuation mist for inhalation ea (Spiriva Respimat) loratadine 10 mg tablet (Claritin) 10 mg PO DAILY 30 Days #30 tab 04/17/21 atorvastatin 10 mg tablet 10 mg PO DAILY #90 tab 05/24/21 Allergies Allergy/AdvReac Type Severity Reaction Status Date / Time No Known Allergies Allergy Unknown Verified 06/13/21 15:00 Review of Systems Review of Systems: Pertinent positives and negatives as stated in HPI 10 point review of systems is otherwise negative. PMFSH Past Medical History Source: nursing notes reviewed Medical History Asthma Chronic allergic rhinitis Chronic [id number] syndrome History of COVID-19 Loud snoring Menopause Mild intermittent asthma Mixed dyslipidemia THOMAS (obstructive sleep apnea) Patient denies medical problems Pneumonitis Pulmonary embolism Witnessed episode of apnea Surgical History H/O breast biopsy H/O hemorrhoidectomy History of partial hysterectomy Family History Family History Father Diabetes mellitus Mother Arthritis Maternal Grandmother Breast cancer Maternal Aunt Breast cancer Brother No problems noted. Brother No problems noted. Sister No problems noted. Social History Social History Alcohol intake: never Patient Tobacco Use Status: Never used Tobacco Advance Directives: No Advance Directives Information Provided: No Patient : No Physical Exam Vital Signs: Vital Signs: Last Vital Signs Temp 97.9 F 07/31/21 03:20 Pulse 85 07/31/21 03:20 Resp 18 07/31/21 03:20 BP 129/90 H 07/31/21 03:20 Pulse Ox 97 07/31/21 03:20 Body Mass Index 27.4 VITAL SIGNS: Reviewed. GENERAL: Well developed, well nourished, in no acute distress. HEAD: Normocephalic/atraumatic EYES: PERRLA, EOMI OROPHARYNX: no oral lesions noted, posterior pharynx clear LUNGS: Normal breath sounds, expiratory wheeze noted, no tachypnea, and no increased work of breathing. SpO2<97> CARDIOVASCULAR: Regular rate and rhythm without noted murmurs ABDOMEN: Soft, non-tender, non-distended with bowel sounds. SKIN: Inspection of the skin reveals no rashes NEUROLOGIC: Alert and oriented x 4. Strength and sensation to light touch were grossly intact x 4. Course Course Course Narrative: 56-year-old female with history and clinical presentation consistent with mild asthma exacerbation that resolved with patient's own use of albuterol treatment and there may have been a component of anxiety as well. Patient is currently asymptomatic and when offered a short course of steroids she declines at this time. On review of all investigations there are no acute findings. All of these results were discussed with her at bedside. MDM - Asthma Lab Data Labs: Lab Results 07/31/21 Range/Units 03:29 COVID-19 (JOHAN) Negative (Negative) COVID-19 Clin Com See Note Discharge Plan Discharge Clinical Impression: Asthma exacerbation Patient Disposition: Home, Self-Care Instructions: Asthma (ED) Additional Instructions: 1. Resume all home medications as prescribed. 2. Recommend cool mist humidifier at the bedside for additional symptom relief at night while sleeping. Return to the ER for worsening symptoms. Prescriptions: No Action budesonide-formoterol [Symbicort] 160-4.5 mcg/actuation HFA aerosol inhaler 2 puff inhalation Q12H Qty: 10.2 RF: 5 albuterol sulfate 90 mcg/actuation HFA aerosol inhaler 2 puff inhalation Q4-6H PRN (Reason: shortness of breath or wheezing) Qty: 8.5 RF: 0 montelukast 10 mg tablet 10 mg PO BEDTIME Qty: 90 RF: 3 atorvastatin 10 mg tablet 10 mg PO DAILY Qty: 90 RF: 2 lorazepam [Ativan] 1 mg tablet 1 mg PO TID PRN (Reason: anxiety) Qty: 10 RF: 0 prednisone 20 mg tablet 40 mg PO DAILY Qty: 10 RF: 0 albuterol sulfate 2.5 mg /3 mL (0.083 %) solution for nebulization 2.5 mg inhalation Q4-6H PRNRF: 0 (DME) BreatheRite MDI Spacer Spacer See Rx Instructions .ROUTE .MEDSUPPLY Qty: 1 RF: 0 loratadine [Claritin] 10 mg tablet 10 mg PO DAILY 30 Days Qty: 30 RF: 11 Spiriva Respimat 2.5 mcg/actuation mist 2 puff inhalation DAILY 30 Days Qty: 1 RF: 11 Referrals: Karina Ward MD [Primary Care Provider] - 2 days
== END 2021-07-31 08:20 | disposition home or self-care (01) ==
PROVIDERS: Emergency Provider Student in an Organized Health Care Education/Training Program; PCP Internal Medicine
DX: J45.901 Unspecified asthma with (acute) exacerbation (principal); Z20.822 Contact with and (suspected) exposure to COVID-19; Z79.899 Other long term (current) drug therapy
CPT/HCPCS: 36415; 71045; 87635; 99283

== ENCOUNTER 2021-08-24 07:13 | Outpatient (REF) | payer OTHER, SELFPAY ==
[2021-08-24 12:03] LABS: Alanine Aminotransferase 36 U/L (0-31); Aspartate Amino Transferase 32 U/L (5-31); Cholesterol 226 mg/dL; HDL Cholesterol 74 mg/dL; LDL Cholesterol Calculated 131 mg/dl; Triglycerides 107 mg/dL
[2021-08-24 12:28] LABS: TSH reflex Free T4 4.13 uIU/mL (0.32-4.0); Vitamin D 25-OH Total 63.2 ng/mL (>30)
[2021-08-24 13:10] LABS: Free T4 (Free Thyroxine) 0.93 ng/dL (0.71-1.85)
== END 2021-08-24 07:14 | disposition home or self-care (01) ==
LOC: HO.HMGCLDS 07:13
PROVIDERS: PCP Internal Medicine; Visit Provider Internal Medicine
DX: E78.2 Mixed hyperlipidemia (principal); R53.83 Other fatigue; Z78.0 Asymptomatic menopausal state
CPT/HCPCS: 36415; 80061; 82306; 84439; 84443; 84450; 84460

== ENCOUNTER 2021-09-16 08:23 | Outpatient (REF) | payer OTHER, SELFPAY ==
--- NOTE | ~2021-09-16 | MM_ITS ---
EXAMINATION: MM SCREENING DIGITAL BREAST TOMOSYNTHESIS, BILATERAL CLINICAL INFORMATION: Screening. Asymptomatic. The lifetime risk of breast cancer based on the Tyrer-Cuzick Model is 14%. COMPARISON: Mammography: 07/27/2020, 02/07/2019, 01/11/2018 TECHNIQUE: Digital breast tomosynthesis is performed in both the craniocaudal and mediolateral oblique views along with computer-aided detection (CAD). Synthesized 2D images are generated from the tomosynthesis. FINDINGS: The breasts are heterogeneously dense, which may obscure small masses (ACR BI-RADS breast composition Category c). Parenchymal pattern is similar to prior studies. There is no developing density or architectural abnormality. Fine fibronodular parenchymal pattern is similar to prior exams. The axilla and skin contours are unremarkable. No significant changes. MM/MM tomosynthesis screening BI IMPRESSION: No mammographic evidence of malignancy. ASSESSMENT: BI-RADS 1: Negative RECOMMENDATION: Routine annual mammography screening. This patient's information was entered into a reminder system with a target due date for their next mammogram.
== END 2021-09-16 08:24 | disposition home or self-care (01) ==
LOC: HO.MAMMO 08:23
PROVIDERS: Visit Provider Internal Medicine
DX: Z12.31 Encounter for screening mammogram for malignant neoplasm of breast (principal)
CPT/HCPCS: 77063; 77067

== ENCOUNTER → 2021-10-05 15:24 | Outpatient (BNVA) | payer OTHER, SELFPAY | PROVIDERS: PCP Internal Medicine; Visit Provider Hospitalist ==

== ENCOUNTER 2022-08-03 12:25 | Outpatient (REF) | payer OTHER, SELFPAY ==
[2022-08-03 14:11] LABS: MANUAL DIFF FLAG NO
[2022-08-03 14:19] LABS: Basophils Absolute Auto 0.1 X10*3/uL (0.0-0.2); Basophils Percent Auto 0.7 % (0-2); Eosinophils Absolute Auto 0.1 X10*3/uL (0.0-0.4); Eosinophils Percent Auto 1.1 % (0-4); Hematocrit 42.4 % (37.0-47.0); Hemoglobin 13.2 g/dl (12.0-16.0); Imm Gran Abs Auto 0.03 X10*3/uL (0.00-0.03); Imm Gran Pct Auto 0.3 % (0.0-0.4); Lymphocytes Absolute Auto 1.9 X10*3/uL (1.2-4.9); Lymphocytes Percent Auto 21.3 % (20-40); Mean Corpuscular HGB Conc 31.1 g/dl (31.0-35.0); Mean Corpuscular Hemoglobin 27.7 pg (27.0-33.0); Mean Corpuscular Volume 88.9 fL (80.0-98.0); Monocytes Absolute Auto 0.8 X10*3/uL (0.1-1.2); Monocytes Percent Auto 9.5 % (2-11); Neutrophils Absolute Auto 5.9 x10*3/uL (2.0-8.3); Neutrophils Percent Auto 67.1 % (45-73); Platelet Count 267 X10*3/uL (160-400); Red Blood Count 4.77 X10*6/uL (4.20-5.50); Red Cell Distribution Width 13.1 % (11.0-16.0); White Blood Count 8.8 X10*3/uL (4.8-10.8)
[2022-08-03 14:49] LABS: Alanine Aminotransferase 34 U/L (0-31); Albumin Level 4.6 g/dL (3.5-5.0); Alkaline Phosphatase 141 U/L (39-117); Anion Gap 13 (12-20); Aspartate Amino Transferase 24 U/L (5-31); Blood Urea Nitrogen 18 mg/dL (9-16); Calcium 9.4 mg/dL (8.4-10.2); Carbon Dioxide 30 mmol/L (22-29); Chloride 103 mmol/L (96-108); Estimated Glomerular Filt Rate > 60; Glucose Random 75 mg/dL (60-115); Potassium 4.4 mmol/L (3.3-5.1); Sodium 142 mmol/L (135-145); Total Protein 7.8 g/dL (6.5-8.0)
[2022-08-03 15:42] LABS: Bilirubin Total 0.5 mg/dL (0.0-1.0)
== END 2022-08-03 12:26 | disposition home or self-care (01) ==
LOC: HO.WFDLDS 12:25
PROVIDERS: Visit Provider Family Medicine
DX: Z00.00 Encounter for general adult medical examination without abnormal findings (principal); U09.9 Post COVID-19 condition, unspecified
CPT/HCPCS: 36415; 80053; 84443; 85025

== ENCOUNTER 2022-08-30 09:18 | Outpatient (REF) | payer OTHER, SELFPAY ==
[2022-08-30 12:14] LABS: Cholesterol 214 mg/dL; Glucose Fasting 93 mg/dL (60-99); HDL Cholesterol 70 mg/dL; LDL Cholesterol Calculated 122 mg/dl; Triglycerides 113 mg/dL; Vitamin D 25-OH Total 45.6 ng/mL (>30)
== END 2022-08-30 09:19 | disposition home or self-care (01) ==
LOC: HO.HMGCLDS 09:18
PROVIDERS: PCP Internal Medicine; Visit Provider Internal Medicine
DX: Z00.01 Encounter for general adult medical examination with abnormal findings (principal); Z78.0 Asymptomatic menopausal state; E78.2 Mixed hyperlipidemia
CPT/HCPCS: 36415; 80061; 82306; 82947

== ENCOUNTER → 2022-10-05 15:19 | Outpatient (BNVA) | payer OTHER, SELFPAY | PROVIDERS: PCP Internal Medicine; Visit Provider Hospitalist | DX: Z13.89 Encounter for screening for other disorder (principal) ==

== ENCOUNTER 2022-10-06 08:41 | Outpatient (REF) | payer OTHER, SELFPAY | END 2022-10-06 08:42 | disposition home or self-care (01) | LOC: HO.MAMMO 08:41 | PROVIDERS: PCP Internal Medicine; Visit Provider Internal Medicine | DX: Z13.89 Encounter for screening for other disorder (principal) ==

== ENCOUNTER → 2022-10-26 13:50 | Outpatient (REF) | payer OTHER, SELFPAY | LOC: HO.SL 13:50 | PROVIDERS: PCP Internal Medicine; Visit Provider Hospitalist | DX: G47.33 Obstructive sleep apnea (adult) (pediatric) (principal) | CPT/HCPCS: 95806 ==

== ENCOUNTER 2023-03-30 07:41 | Outpatient (REF) | payer OTHER, SELFPAY ==
[2023-03-30 09:15] LABS: Alanine Aminotransferase 23 U/L (0-31); Aspartate Amino Transferase 22 U/L (5-31); Cholesterol 208 mg/dL; HDL Cholesterol 66 mg/dL; LDL Cholesterol Calculated 116 mg/dl; Triglycerides 132 mg/dL
== END 2023-03-30 07:42 | disposition home or self-care (01) ==
LOC: HO.LAB 07:41
PROVIDERS: PCP Internal Medicine; Visit Provider Internal Medicine
DX: E78.2 Mixed hyperlipidemia (principal)
CPT/HCPCS: 36415; 80061; 84450; 84460

== ENCOUNTER → 2023-05-11 07:45 | Outpatient (BNV) | payer OTHER, SELFPAY | PROVIDERS: PCP Internal Medicine; Visit Provider Radiology Diagnostic Radiology | DX: Z12.31 Encounter for screening mammogram for malignant neoplasm of breast (principal) | CPT/HCPCS: 77063; 77067 ==

== ENCOUNTER 2023-05-11 07:46 | Outpatient (REF) | payer OTHER, SELFPAY ==
--- NOTE | ~2023-05-11 | MM_ITS ---
EXAMINATION: MM SCREENING DIGITAL BREAST TOMOSYNTHESIS, BILATERAL CLINICAL INFORMATION: Screening. Asymptomatic. COMPARISON: Mammography: This study is compared with prior exams dating back to 2016. TECHNIQUE: Digital breast tomosynthesis is performed in both the craniocaudal and mediolateral oblique views along with computer-aided detection (CAD). Synthesized 2D images are generated from the tomosynthesis. FINDINGS: The breasts are heterogeneously dense, which may obscure small masses (ACR BI-RADS breast composition Category c). There are no significant masses, abnormal calcifications, or other abnormalities. MM/MM tomosynthesis screening BI IMPRESSION: No mammographic evidence of malignancy. ASSESSMENT: BI-RADS BI-RADS 1 - Negative RECOMMENDATION: Routine annual mammography screening. 1 year F/U This examination should not preclude the clinical evaluation of a suspicious palpable abnormality. This patient's information was entered into a reminder system with a target due date for their next mammogram.
== END 2023-05-11 07:47 | disposition home or self-care (01) ==
LOC: HO.MAMMO 07:46
PROVIDERS: PCP Internal Medicine; Visit Provider Internal Medicine
DX: Z12.31 Encounter for screening mammogram for malignant neoplasm of breast (principal)
CPT/HCPCS: 77063; 77067

== ENCOUNTER 2023-10-04 06:22 | Outpatient (REF) | payer OTHER, SELFPAY ==
[2023-10-04 08:04] LABS: Alanine Aminotransferase 34 U/L (0-31); Aspartate Amino Transferase 30 U/L (5-31); Cholesterol 200 mg/dL (<200); HDL Cholesterol 76 mg/dL (>40); LDL Cholesterol Calculated 107 mg/dL (<100); Triglycerides 87 mg/dL (<150)
== END 2023-10-04 06:23 | disposition home or self-care (01) ==
LOC: HO.LAB 06:22
PROVIDERS: PCP Internal Medicine; Visit Provider Internal Medicine
DX: E78.2 Mixed hyperlipidemia (principal)
CPT/HCPCS: 36415; 80061; 84450; 84460

== ENCOUNTER 2023-10-08 11:25 | Outpatient (AMB) | payer OTHER, SELFPAY ==
--- NOTE | 2023-10-08 11:33 | A.OFFPC_ITS ---
Vital Signs 10/08/23 11:34 Height 5 ft 6 in Weight 165 lb BMI 26.6 BP 112/72 Blood Pressure Location Lt brachial Position Sitting Pulse 80 Pulse Source Pulse Oximeter Pulse Oximetry (%) 96 Oxygen Delivery Method Room Air Intake Visit Reasons: 6 mo. f/u labs Intake Note: Pt is here today to f/u labs Allergies tiotropium [From Spiriva with HandiHaler] Adverse Reaction (Intermediate, Verified 10/08/23 11:57) Anxiety Medication List - Last Reconciled 10/08/23 by Karina Ward MD albuterol sulfate 2.5 mg inhalation Q4-6H PRN albuterol sulfate 90 mcg/actuation 2 puffs inhalation Q4-6H PRN aspirin (Adult Low Dose Aspirin) 81 mg PO DAILY atorvastatin 10 mg PO DAILY budesonide-formoterol 160-4.5 mcg/actuation (Symbicort) 2 puffs inhalation Q12H cetirizine (All Day Allergy (cetirizine)) 10 mg PO BEDTIME PRN inhalational spacing device (BreatheRite MDI Spacer) As directed montelukast 10 mg PO BEDTIME multivitamin 1 tab PO DAILY nebulizers As directed Tobacco use date assessed: 10/08/23 Dental Screening Dental Screen Date: 10/08/23 Did you have a dental visit in the last 12 months?: No Was dental information given to patient?: No HPI 6 mo. f/u labs HPI Details 58-year-old lady here today for follow-u p on her lipids. Currently on atorvastatin 10 mg daily and has been trying to follow low-cholesterol diet recommended. Admits to not getting any exercise this past winter months however recent fasting labs showed improvement in her lipid levels. 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 Brother No problems noted. Sister No problems noted. Social History Housing: House Alcohol intake: never Patient Tobacco Use Status: Never used Tobacco e-Cigarette/Vaping Use: Never Used service: No Current occupational status: employed Current occupational exposures/hazards: No Cognitive needs: No Hearing needs: No Vision needs: Yes Questionnaire PHQ-9 Over the last 2 weeks, how often have you been bothered by any of the following problems? 1. Little interest or pleasure in doing things: not at all 2. Feeling down, depressed, or hopeless: not at all 3. Trouble falling or staying asleep, or sleeping too much: several days 4. Feeling tired or having little energy: several days 5. Poor appetite or overeating: not at all 6. Feeling bad about yourself - or that you are a failure or have let yourself or your family down: not at all 7. Trouble concentrating on things, such as reading the newspaper or watching television: not at all 8. Moving or speaking so slowly that other people could have noticed. Or the opposite - being so fidgety or restless that you have been moving around a lot more than usual: not at all 9. Thoughts that you would be better off or of hurting yourself in some way: not at all Total score: 2 Depression Screening Interpretation: Negative Depression Screening Done: Yes 61595 - PHQ-9 Billing: Yes Source: Developed by Drs. Keith Garner, Lilly Denton, Duarte Jimenez and colleagues, with an educational rosario from [employer]. Thrive Questionnaire Date Thrive assessed: 10/08/23 I am a: Patient What is your living situation today?: I have a steady place to live Within the past 12 months, did the food you bought not last and you didn't have the money to get more?: Never true Within the past 12 months, did you worry whether your food would run out before you got money to buy more?: Never true Do you have trouble paying for medicines?: No Do you have trouble getting transportation to medical appointments?: No Do you have trouble paying your heating and electricity bill?: No Do you have trouble taking care of your child, family member or friend?: No Do you have trouble with day-to-day activities such as bathing, preparing meals, shopping, managing finances, etc.?: No Are you currently unemployed and looking for a job?: No Are you interested in more education?: No THRIVE Score: 0 AUDIT C Alcohol Use Questionnaire (AUDIT-C) 1. How often do you have a drink containing alcohol?: 2-3 times a week 2. How many drinks containing alcohol do you have on a typical day when you are drinking?: 3 or 4 3. How often do you have six or more drinks on one occasion?: Monthly Total Score: 6 AIDA-7 AMB Questionnaire AIDA-7 Date AIDA - 7 assessed: 10/08/23 Feeling nervous, anxious, or on edge: 0 = Not at all Not being able to stop or control worryin = Not at all Worrying too much about different things: 0 = Not at all Trouble relaxin = Not at all Being so restless that it is hard to sit still: 0 = Not at all Becoming easily annoyed or irritable: 1 = Several days Feeling afraid as if something awful might happen: 0 = Not at all Total AIDA-7 score (0-4 normal; 5-9 mild; 10-14 moderate; 15-21 severe): 1 Source: Developed by Drs. Keith Garner, Lilly Denton, Duarte Jimenez and colleagues, with an educational rosario from [employer]. AIDA-7 Assessment Billing AIDA-7 Assessment Tool: AIDA-7 Assessment 22033 Review of Systems Const Reports no additional complaints Eyes Denies change in vision ENT Reports no additional complaints Card Denies chest pain, Denies rapid heart rate, Denies irregular heart rhythm, Denies lightheadedness and Denies dyspnea Resp Denies cough and Denies dyspnea GI Reports no additional complaints Musc Denies no additional complaints Neuro Denies no additional complaints Endo Reports no additional complaints Aller/Immun Reports seasonal rhinorrhea Physical exam (Primary Care) Vital Signs: Last Vital Signs Pulse 80 02/06/24 11:34 BP 112/72 10/08/23 11:34 Pulse Ox 96 10/08/23 11:34 Oxygen Delivery Method Room Air 10/08/23 11:34 BMI result Body Mass Index 26.6 Tobacco/Smoking Status: Tobacco use Status Tobacco use date assessed 10/08/23 10/08/23 11:39 Patient Tobacco Use Status Never used Tobacco 10/08/23 11:39 e-Cigarette/Vaping Use Never Used 10/08/23 11:39 PHQ-9: PHQ-9 Score PHQ-9: Total score 2 10/08/23 11:46 Depression Screening Interpretation: Negative Thrive Assessment: Date of Thrive Assessment Date Thrive assessed 10/08/23 10/08/23 11:41 Const Orientation/consciousness: patient oriented x3 HENMT Ears: external ears normal General nose exam: Normal external nose present Face and sinus: Yes face symmetric Mouth: Normal oral and palatal mucosa present, oropharynx normal and moist mucous membranes Eyes General: appearance normal, both eyes and all related structures Neck Neck: Yes full ROM, Yes no lymphadenopathy and Yes supple Resp Effort & Inspection: normal respiratory effort and able to speak in complete sentences Auscultation: clear to auscultation bilaterally Cardio Other: S1-S2 present, regular in rate and rhythm no murmur GI Palpation (GI): Soft to palpation, nontender, no guarding and no masses Auscultation: normal bowel sounds Neuro General: patient oriented x3, gait normal, tone normal and Normal light touch and pain sensation Extrem General: Yes full ROM, Yes no joint enlargement, Yes no clubbing, cyanosis or edema, Yes no calf tenderness and Yes normal gait Assessment and Plan Assessment & Plan (1) Mixed dyslipidemia: Code(s): E78.2 - Mixed hyperlipidemia Plan: Lipids are within normal limits, continued on atorvastatin 10 mg daily in addition to adhering to healthy eating habits and getting regular exercise. (2) Chronic allergic rhinitis: Code(s): J30.9 - Allergic rhinitis, unspecified Plan: Currently on cetirizine 10 mg 1 tablet q.h.s. as needed and montelukast 10 mg 1 tablet daily Coding Level of Care Code Est Pt Level 4 (68576) Diagnoses Mixed dyslipidemia E78.2 Chronic allergic rhinitis J30.9 Additional Codes AIDA-7 Assessment Billing - AIDA-7 Assessment Tool: AIDA-7 Assessment 09115 ([id number])
[2023-10-08 11:34] VITALS: BP 112/72; PULSE 80; O2SAT 96; BMI 26.6
== END 2023-10-08 12:12 | disposition home or self-care (01) ==
PROVIDERS: PCP Internal Medicine; Visit Provider Internal Medicine
DX: E78.2 Mixed hyperlipidemia (principal); J30.9 Allergic rhinitis, unspecified
CPT/HCPCS: 99499

== ENCOUNTER 2024-03-23 06:10 | Outpatient (REF) | payer BC, SELFPAY ==
[2024-03-23 08:37] LABS: Alanine Aminotransferase 22 U/L (0-31); Aspartate Amino Transferase 24 U/L (5-31); Cholesterol 236 mg/dL (<200); Glucose Fasting 93 mg/dL (60-99); HDL Cholesterol 70 mg/dL (>40); LDL Cholesterol Calculated 132 mg/dL (<100); Triglycerides 173 mg/dL (<150)
[2024-03-23 08:56] LABS: Vitamin D 25-OH Total 55.4 ng/mL (>30)
== END 2024-03-23 06:11 | disposition home or self-care (01) ==
LOC: HO.LAB 06:10
PROVIDERS: PCP Internal Medicine; Visit Provider Internal Medicine
DX: E78.2 Mixed hyperlipidemia (principal); Z13.1 Encounter for screening for diabetes mellitus; Z78.0 Asymptomatic menopausal state
CPT/HCPCS: 36415; 80061; 82306; 82947; 84450; 84460

== ENCOUNTER 2024-03-26 09:26 | Outpatient (AMB) | payer BC, SELFPAY ==
[2024-03-26 09:43] VITALS: BP 122/76; PULSE 70; O2SAT 95; BMI 26.6
--- NOTE | 2024-03-26 09:43 | MHC.PC.OV ---
Vital Signs 03/26/24 09:43 Height 5 ft 6 in Weight 165 lb BMI 26.6 BP 122/76 Blood Pressure Location Rt brachial Position Sitting Pulse 70 Pulse Source Pulse Oximeter Pulse Oximetry (%) 95 Oxygen Delivery Method Room Air Intake Visit Reasons: Annual PE Intake Note: patient is here for annual exam last pap:patient has a partial hysterectomy, no pap needed last mammo:05/11/2023, upcoming appt is 05/2024 last bone density: has not been ordered Physician Practice Consultant Required: No Accompanied by: Self / Same As Patient Allergies tiotropium [From Spiriva with HandiHaler] Adverse Reaction (Intermediate, Verified 03/26/24 10:25) Anxiety Medication List - Last Reconciled 03/26/24 by Karina Ward MD albuterol sulfate 2.5 mg inhalation Q4-6H PRN albuterol sulfate 90 mcg/actuation 2 puffs inhalation Q4-6H PRN aspirin (Adult Low Dose Aspirin) 81 mg PO DAILY atorvastatin 10 mg PO DAILY cetirizine (All Day Allergy (cetirizine)) 10 mg PO BEDTIME PRN inhalational spacing device (BreatheRite MDI Spacer) As directed montelukast 10 mg PO BEDTIME multivitamin 1 tab PO DAILY nebulizers As directed Tobacco use date assessed: 10/08/23 Dental Screening Dental Screen Date: 10/08/23 HPI Annual PE HPI Details 59-year-old lady with history of dyslipidemia, chronic allergic rhinitis, obstructive sleep apnea and mild intermittent asthma here today for physical exam. She had a partial hysterectomy, no further pap needed . Up-to-date with breast cancer screening, last mammogram was in 05/11/2023, already schedule an appointment for May this year. She is up-to-date with her screening colon[place] [address] Barnes , due for a repeat colonoscopy next year She has mixed dyslipidemia, currently on atorvastatin 10 mg daily, but admits to being off her diet, has been in a lot of junk food, consisting of potato chips and cheese daily, no regular exercise. 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 Brother No problems noted. Sister No problems noted. Social History Housing: House Alcohol intake: never Patient Tobacco Use Status: Never used Tobacco e-Cigarette/Vaping Use: Never Used service: No Current occupational status: employed Current occupational exposures/hazards: No Cognitive needs: No Hearing needs: No Vision needs: Yes Female Reproductive History Menstrual Menopause type: surgical Questionnaire PHQ-9 Over the last 2 weeks, how often have you been bothered by any of the following problems? 1. Little interest or pleasure in doing things: several days 2. Feeling down, depressed, or hopeless: not at all 3. Trouble falling or staying asleep, or sleeping too much: not at all 4. Feeling tired or having little energy: several days 5. Poor appetite or overeating: not at all 6. Feeling bad about yourself - or that you are a failure or have let yourself or your family down: not at all 7. Trouble concentrating on things, such as reading the newspaper or watching television: not at all 8. Moving or speaking so slowly that other people could have noticed. Or the opposite - being so fidgety or restless that you have been moving around a lot more than usual: not at all 9. Thoughts that you would be better off or of hurting yourself in some way: not at all Total score: 2 Depression Screening Interpretation: Negative Depression Screening Done: Yes 40396 - PHQ-9 Billing: Yes Source: Developed by Drs. Keith Garner, Lilly Denton, Duarte Jimenez and colleagues, with an educational rosario from [employer]. Thrive Questionnaire Date Thrive assessed: 03/26/24 I am a: Patient What is your living situation today?: I have a steady place to live Within the past 12 months, did the food you bought not last and you didn't have the money to get more?: Never true Within the past 12 months, did you worry whether your food would run out before you got money to buy more?: Never true Do you have trouble paying for medicines?: No Do you have trouble getting transportation to medical appointments?: No Do you have trouble paying your heating and electricity bill?: No Do you have trouble taking care of your child, family member or friend?: No Do you have trouble with day-to-day activities such as bathing, preparing meals, shopping, managing finances, etc.?: No Are you currently unemployed and looking for a job?: No Are you interested in more education?: No Please select the resources that you would like help with: Housing/Detention Currently or been in a relationship where the following occur: No concerns reported THRIVE Score: 0 AUDIT C Alcohol Use Questionnaire (AUDIT-C) 1. How often do you have a drink containing alcohol?: 2-3 times a week 2. How many drinks containing alcohol do you have on a typical day when you are drinking?: 3 or 4 3. How often do you have six or more drinks on one occasion?: Monthly Total Score: 6 Score Reviewed/Action Taken: Yes AIDA-7 AMB Questionnaire AIAD-7 Date AIDA - 7 assessed: 03/26/24 Feeling nervous, anxious, or on edge: 0 = Not at all Not being able to stop or control worryin = Not at all Worrying too much about different things: 0 = Not at all Trouble relaxin = Not at all Being so restless that it is hard to sit still: 0 = Not at all Becoming easily annoyed or irritable: 2 = More than half the days Feeling afraid as if something awful might happen: 0 = Not at all Total AIDA-7 score (0-4 normal; 5-9 mild; 10-14 moderate; 15-21 severe): 2 Source: Developed by Drs. Keith Garner, Lilly Denton, Duarte Jimenez and colleagues, with an educational rosario from [employer] AIDA-7 Assessment Billing AIDA-7 Assessment Tool: AIDA-7 Assessment 56506 Review of Systems Const Reports no additional complaints Eyes Denies change in vision ENT Reports no additional complaints Card Denies chest pain, Denies rapid heart rate, Denies irregular heart rhythm, Denies lightheadedness and Denies dyspnea Resp Denies cough and Denies dyspnea GI Reports no additional complaints Reports no additional complaints Musc Denies no additional complaints Skin/Breast Denies breast pain, Denies breast mass and Denies rash Neuro Denies no additional complaints Psych Reports no additional complaints Endo Reports no additional complaints Bird/Lymph Reports no additional complaints Aller/Immun Reports seasonal rhinorrhea Physical exam (Primary Care) Vital Signs: Last Vital Signs Pulse 70 03/26/24 09:43 BP 122/76 03/26/24 09:43 Pulse Ox 95 03/26/24 09:43 Oxygen Delivery Method Room Air 03/26/24 09:43 BMI result Body Mass Index 26.6 Tobacco/Smoking Status: Tobacco use Status Tobacco use date assessed 10/08/23 03/26/24 09:46 Patient Tobacco Use Status Never used Tobacco 03/26/24 09:46 e-Cigarette/Vaping Use Never Used 03/26/24 09:46 PHQ-9: PHQ-9 Score PHQ-9: Total score 2 03/26/24 10:28 Depression Screening Interpretation: Negative Thrive Assessment: Date of Thrive Assessment Date Thrive assessed 03/26/24 03/26/24 09:46 Currently or been in a relationship where the following occur: No concerns reported Const Orientation/consciousness: patient oriented x3 HENMT Ears: external ears normal General nose exam: Normal external nose present Face and sinus: Yes face symmetric Mouth: Normal oral and palatal mucosa present, oropharynx normal and moist mucous membranes Eyes General: appearance normal, both eyes and all related structures Neck Neck: Yes full ROM, Yes no lymphadenopathy and Yes supple Chest Breast/axilla inspection: normal inspection of the breasts Breast/axilla palpation: normal palpation of the breasts Resp Effort & Inspection: normal respiratory effort and able to speak in complete sentences Auscultation: clear to auscultation bilaterally Cardio Other: S1-S2 present, regular in rate and rhythm no murmur GI Palpation (GI): Soft to palpation, nontender, no guarding and no masses Auscultation: normal bowel sounds General: Yes no CVA tenderness Back/Spine/Pelvis Back: no CVA tenderness and No back tenderness Skin General skin exam: no rashes or lesions noted Neuro General: patient oriented x3, gait normal, tone normal and Normal light touch and pain sensation Extrem General: Yes full ROM, Yes no joint enlargement, Yes no clubbing, cyanosis or edema, Yes no calf tenderness and Yes normal gait Psych Appearance: grossly normal and well kempt Mental Status: mental status grossly normal Speech and movement: Normal speech and movement present Affect: normal affect Attitude: cooperative Thought process: Normal thought process present Thought content: Normal thought content present Results Reviewed Results Reviewed: Name: Kayla Sahu Age/Sex: 59/F : 1965 Unit#: [id number] Attend Dr: Karina Ward MD Re03/23/24 Status: DEP REF Location: [facility] Disch: SPEC : [id number] MEME: 03/23/24 STATUS: COMP REQ : [id number] RECD: 03/23/[address]: Karina Ward MD COMP: 03/23/24 ENTERED: 03/23/[address]: ORDERED: Glu Fasting, AST, ALT, Lipid Panel, Vitamin D 25-OH Test Result Flag Reference FBS 93 60-99 mg/dL AST (GOT) 24 5-31 U/L ALT (GPT) 22 0-31 U/L Triglyceride 173 H <150 mg/dL Desirable Triglyceride: less than 150 mg/dL Borderline High Triglyceride 150-199 mg/dL High Triglyceride: 200-499 mg/dL Very High Triglyceride: greater than or equal to 5OO mg/dL Cholesterol 236 H <200 mg/dL Desirable Cholesterol: less than 200 mg/dL Borderline High Cholesterol: 200-239 mg/dL High Cholesterol: greater than 239 mg/dL LDL Calculated 132 H <100 mg/dL Desirable LDL: less than 100 mg/dL Near Optimal/Above Optimal LDL: 110-129 mg/dL Borderline High LDL: 130-159 mg/dL High LDL: 160-189 mg/dL Very High LDL: greater than or equal to 190 mg/dL HDL 70 >40 mg/dL Desirable HDL: greater than 40 mg/dL Note: This HDL assay may give artificially low results in patients with liver disease. Vit D 25-OH Tot 55.4 >30 ng/mL Health Based Reference Values* < 20 ng/mL Deficient 20-30 ng/mL Insufficient > 30 ng/mL Sufficient Assessment and Plan Assessment & Plan (1) Annual visit for general adult medical examination with abnormal findings: Code(s): Z00.01 - Encounter for general adult medical examination with abnormal findings Plan: Recent fasting labs reviewed with patient. Continue with regular dental visit every 6 months and regular eye exams, at least every 2 years. Take adequate calcium in diet and vitamin-D 3 at 2000 IU per cap once a day, in addition to weight-bearing exercises to help maintain good muscle tone and weight control. Instructed to do self-breast exam, and continue with yearly mammogram, repeat mammogram already scheduled.. Up-to-date with her screening colonoscopy.. Reminded to get yearly flu shot, up-to-date with her pneumonia vaccination and Tdap, does not want to get COVID booster (2) Chronic allergic rhinitis: Code(s): J30.9 - Allergic rhinitis, unspecified Plan: Continue cetirizine and montelukast (3) THOMAS (obstructive sleep apnea): Code(s): G47.33 - Obstructive sleep apnea (adult) (pediatric) Plan: Followed by Pulmonary, repeat sleep study done (4) Mixed dyslipidemia: Code(s): E78.2 - Mixed hyperlipidemia Plan: Reviewed recent fasting lipid profile with patient with LDL cholesterol elevated on last lab done . Continue atorvastatin 10 mg daily and stressed importance of adherence to low-cholesterol diet and regular exercise, at least 30 minutes 3 to 4 times a week. Advised patient to make healthy food choices, eat more fruits, vegetables, whole grains, wild caught fish and low-fat dairy. Limit amount of meat and fried or fatty food products, as well as processed foods and fast foods. Follow-up scheduled with repeat fasting lipid panel in 5 months. (5) Mild intermittent asthma: Code(s): J45.20 - Mild intermittent asthma, uncomplicated Qualifiers: Asthma complication type: uncomplicated Qualified Code(s): J45.20 - Mild intermittent asthma, uncomplicated Plan: Controlled with using only albuterol inhaler as needed for episodes of bronchospasm and montelukast. (6) Post-hysterectomy menopause: Code(s): E89.40 - Asymptomatic postprocedural ovarian failure; Z90.710 - Acquired absence of both cervix and uterus Plan: Bone density scan ordered Orders: Orders XR DEXA axial skeleton 07/25/24 Z78.0 - Asymptomatic menopausal state Lipid Panel 08/02/24 E78.2 - Mixed hyperlipidemia, E89.40 - Asymptomatic postprocedural ovarian failure, Z90.710 - Acquired absence of both cervix and uterus Vitamin D 25-OH Total 08/02/24 E78.2 - Mixed hyperlipidemia, E89.40 - Asymptomatic postprocedural ovarian failure, Z90.710 - Acquired absence of both cervix and uterus Alanine Aminotransferase 08/02/24 E78.2 - Mixed hyperlipidemia, E89.40 - Asymptomatic postprocedural ovarian failure, Z90.710 - Acquired absence of both cervix and uterus Aspartate Amino Transferase 08/02/24 E78.2 - Mixed hyperlipidemia, E89.40 - Asymptomatic postprocedural ovarian failure, Z90.710 - Acquired absence of both cervix and uterus Coding Level of Care Code Est Pt Prev Care 40-64y(94561) Diagnoses Annual visit for general adult medical examination with abnormal findings Z00.01 Chronic allergic rhinitis J30.9 THOMAS (obstructive sleep apnea) G47.33 Mixed dyslipidemia E78.2 Mild intermittent asthma without complication J45.20 Asthma complication type: uncomplicated Post-hysterectomy menopause E89.40; Z90.710 Additional Codes AIDA-7 Assessment Billing - AIDA-7 Assessment Tool: AIDA-7 Assessment 76327 ([id number])
== END 2024-03-26 10:55 | disposition home or self-care (01) ==
PROVIDERS: PCP Internal Medicine; Visit Provider Internal Medicine
DX: Z00.00 Encounter for general adult medical examination without abnormal findings (principal); J30.9 Allergic rhinitis, unspecified; G47.33 Obstructive sleep apnea (adult) (pediatric); E78.2 Mixed hyperlipidemia; J45.20 Mild intermittent asthma, uncomplicated; E89.40 Asymptomatic postprocedural ovarian failure; Z90.710 Acquired absence of both cervix and uterus
CPT/HCPCS: 99396

== ENCOUNTER 2024-05-27 08:55 | Outpatient (REF) | payer BC, SELFPAY ==
--- NOTE | ~2024-05-27 | MM_ITS ---
EXAMINATION: BONE DENSITOMETRY CLINICAL INDICATION: Asymptomatic menopausal state. COMPARISON: This is the patient's baseline examination. TECHNIQUE: Using a icomply DXA System (software version: 13.1) manufactured by [employer], dual-energy x-ray absorptiometry was performed of the lumbar spine and left hip. The images are of good technical quality. Summary results are attached. FINDINGS: LEFT FEMUR, NECK: BMD 0.711 g/cm2, Z-score -1.2, T-score -2.4, osteopenia. LEFT FEMUR, TOTAL: BMD 0.794 g/cm2, Z-score -0.9, T-score -1.7, osteopenia. AP SPINE L1-L4: BMD 0.778 g/cm2, Z-score -2.3, T-score -3.3, osteoporosis. IDENTIFIED RISK FACTORS: Early menopause, secondary osteoporosis, glucocorticoids, hysterectomy. HISTORY OF FRACTURE: None listed. MEDICATIONS: Calcium supplements or multivitamin, vitamin D. MM/XR DEXA axial skeleton IMPRESSION: 1. DIAGNOSIS: Osteoporosis based on the lowest T-score value of -3.3 in the lumbar spine applying World Health Organization criteria. 2. 10-YEAR FRACTURE RISK PREDICTION, FRAX: According to the guidelines, FRAX calculation should only be performed on patients in the osteopenia bone density category. Therefore, FRAX was not performed on this patient. 3. Treatment Recommendations: NOF guidelines recommend consideration for treatment in postmenopausal women and men age 50 and older presenting with the following: -A hip or vertebral (clinical or morphometric) fracture. -T-score less than or equal to -2.5 at the femoral neck or spine after appropriate evaluation to exclude secondary causes. -Low bone mass at the hip or spine and a 10-year fracture probability by FRAX of greater than or equal to 3% for hip fracture or greater than or equal to 20% for major osteoporotic fracture based on the [place] adapted WHO algorithm. 4. Other Recommendations: All treatment decisions require clinical judgment and consideration of individual patient factors, including patient preferences, comorbidities, previous drug use, risk factors not captured in the FRAX model (e.g. frailty, falls, vitamin D deficiency, increased bone turnover, interval significant decline in bone density) and possible under or overestimation of fracture risk by FRAX. Additional medical evaluation for secondary cause of low bone mineral density may be appropriate. FUTURE SCAN RECOMMENDATION: People with diagnosed cases of osteoporosis or at high risk for fracture should have regular bone mineral density tests. For patients eligible for Medicare, routine testing is allowed once every 2 years. The testing frequency can be increased to one year for patients who have rapidly progressing disease, those who are receiving or discontinuing medical therapy to restore bone mass, or have additional risk factors. Electronically signed by: Minda Yeager MD 06/10/2024 08:14 AM EDT
--- NOTE | ~2024-05-27 | MM_ITS ---
EXAMINATION: MM SCREENING DIGITAL BREAST TOMOSYNTHESIS, BILATERAL CLINICAL INFORMATION: Screening. Asymptomatic. COMPARISON: Mammography: Comparison is made with available priors TECHNIQUE: Digital breast mammography with tomosynthesis is performed in both the craniocaudal and mediolateral oblique views along with computer-aided detection (CAD). FINDINGS: The breasts are heterogeneously dense, which may obscure small masses (ACR BI-RADS breast composition Category c). There are no significant masses, abnormal calcifications, or other abnormalities. MM/MM tomosynthesis screening BI IMPRESSION: No mammographic evidence of malignancy. ASSESSMENT: BI-RADS BI-RADS 1 - Negative RECOMMENDATION: Routine annual mammography screening. 1 year F/U This examination should not preclude the clinical evaluation of a suspicious palpable abnormality. This patient's information was entered into a reminder system with a target due date for their next mammogram. Electronically signed by: Isadora Marroquin DO 06/08/2024 05:15 PM EDT
== END 2024-05-27 08:56 | disposition home or self-care (01) ==
LOC: HO.MAMMO 08:55
PROVIDERS: PCP Internal Medicine; Visit Provider Internal Medicine
DX: Z12.31 Encounter for screening mammogram for malignant neoplasm of breast (principal); Z13.820 Encounter for screening for osteoporosis; Z78.0 Asymptomatic menopausal state
CPT/HCPCS: 77063; 77067; 77080

== ENCOUNTER → 2024-05-27 09:45 | Outpatient (BNV) | payer BC, SELFPAY | PROVIDERS: PCP Internal Medicine; Visit Provider Internal Medicine | DX: Z12.31 Encounter for screening mammogram for malignant neoplasm of breast (principal) | CPT/HCPCS: 77063; 77067 ==

== ENCOUNTER 2024-08-17 08:35 | Outpatient (REF) | payer BC, SELFPAY ==
[2024-08-17 10:49] LABS: Alanine Aminotransferase 26 U/L (0-31); Aspartate Amino Transferase 26 U/L (5-31); Cholesterol 229 mg/dL (<200); HDL Cholesterol 71 mg/dL (>40); LDL Cholesterol Calculated 136 mg/dL (<100); Triglycerides 111 mg/dL (<150)
[2024-08-17 10:52] LABS: Vitamin D 25-OH Total 68.6 ng/mL (>30)
== END 2024-08-17 08:36 | disposition home or self-care (01) ==
LOC: HO.HMGCLDS 08:35
PROVIDERS: PCP Internal Medicine; Visit Provider Internal Medicine
DX: E78.2 Mixed hyperlipidemia (principal); E89.40 Asymptomatic postprocedural ovarian failure; Z90.710 Acquired absence of both cervix and uterus
CPT/HCPCS: 36415; 80061; 82306; 84450; 84460

== ENCOUNTER 2024-08-20 13:09 | Outpatient (AMB) | payer BC, SELFPAY ==
--- NOTE | 2024-08-20 13:16 | MHC.PC.OV ---
Vital Signs 08/20/24 13:26 Height 5 ft 6 in Weight 166 lb BMI 26.8 BP 116/78 Blood Pressure Location Lt brachial Position Sitting Pulse 78 Pulse Source Pulse Oximeter Pulse Oximetry (%) 98 Oxygen Delivery Method Room Air Intake Visit Reasons: Follow up Intake Note: Pt is here today for her lab f/u Allergies tiotropium [From Spiriva with HandiHaler] Adverse Reaction (Intermediate, Verified 08/20/24 13:57) Anxiety Medication List - Last Reconciled 08/20/24 by Karina Ward MD albuterol sulfate 2.5 mg inhalation Q4-6H PRN albuterol sulfate 90 mcg/actuation 2 puffs inhalation Q4-6H PRN aspirin (Adult Low Dose Aspirin) 81 mg PO DAILY atorvastatin 10 mg PO DAILY cetirizine (All Day Allergy (cetirizine)) 10 mg PO BEDTIME PRN inhalational spacing device (BreatheRite MDI Spacer) As directed montelukast 10 mg PO BEDTIME multivitamin 1 tab PO DAILY nebulizers As directed Tobacco use date assessed: 08/20/24 Dental Screening Dental Screen Date: 08/20/24 Did you have a dental visit in the last 12 months?: No Did you have a dental problem in the last 6 months where you did not have access to dental care?: No Was dental information given to patient?: Patient has dentist HPI Follow up HPI Details - The patient is a 59-year-old female presenting with follow-up for management of hypertension and hyperlipidemia. - Blood pressure is well-controlled and stable with current medication regimen. - Triglycerides have improved, attributed to dietary changes, but total cholesterol remains above goal, although it has decreased compared to previous levels. - The patient notes that her bad cholesterol remains unchanged while her good cholesterol is at a favorable level. - Describes dietary modifications, includes reduction of red , meat and junk food consumption. Currently on Atorvastatin 10 mg daily - Discusses participation in exercise activities with emphasis on cardiovascular exercise. 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 Brother No problems noted. Sister No problems noted. Social History Housing: House Alcohol intake: never Patient Tobacco Use Status: Never used Tobacco e-Cigarette/Vaping Use: Never Used service: No Current occupational status: employed Current occupational exposures/hazards: No Cognitive needs: No Hearing needs: No Vision needs: Yes Questionnaire PHQ-9 Over the last 2 weeks, how often have you been bothered by any of the following problems? Depression Screening Interpretation: Negative Depression Screening Done: Yes Source: Developed by Drs. Keith Garner, Lilly Denton, Duarte Jimenez and colleagues, with an educational rosario from [employer]. Thrive Questionnaire Date Thrive assessed: 03/26/24 I am a: Patient What is your living situation today?: I have a steady place to live Within the past 12 months, did the food you bought not last and you didn't have the money to get more?: Never true Within the past 12 months, did you worry whether your food would run out before you got money to buy more?: Never true Do you have trouble paying for medicines?: No Do you have trouble getting transportation to medical appointments?: No Do you have trouble paying your heating and electricity bill?: No Do you have trouble taking care of your child, family member or friend?: No Do you have trouble with day-to-day activities such as bathing, preparing meals, shopping, managing finances, etc.?: No Are you currently unemployed and looking for a job?: No Are you interested in more education?: No Please select the resources that you would like help with: None Currently or been in a relationship where the following occur: No concerns reported THRIVE Score: 0 AIDA-7 AMB Questionnaire AIDA-7 Date AIDA - 7 assessed: 03/26/24 Source: Developed by Drs. Keith Garner, Lilly Denton, Duarte Jimenez and colleagues, with an educational rosario from [employer]. Review of Systems Const Reports no additional complaints Eyes Denies change in vision ENT Reports no additional complaints Card Denies chest pain, Denies rapid heart rate, Denies irregular heart rhythm, Denies lightheadedness and Denies dyspnea Resp Denies cough and Denies dyspnea GI Reports no additional complaints Reports no additional complaints Musc Denies no additional complaints Neuro Denies no additional complaints Endo Reports no additional complaints Bird/Lymph Reports no additional complaints Aller/Immun Reports seasonal rhinorrhea Physical exam (Primary Care) Vital Signs: Last Vital Signs Pulse 78 08/20/24 13:26 BP 116/78 08/20/24 13:26 Pulse Ox 98 08/20/24 13:26 Oxygen Delivery Method Room Air 08/20/24 13:26 BMI result Body Mass Index 26.8 Tobacco/Smoking Status: Tobacco use Status Tobacco use date assessed 08/20/24 08/20/24 13:17 Patient Tobacco Use Status Never used Tobacco 08/20/24 13:17 e-Cigarette/Vaping Use Never Used 08/20/24 13:17 Depression Screening Interpretation: Negative Thrive Assessment: Date of Thrive Assessment Date Thrive assessed 03/26/24 08/20/24 13:17 Currently or been in a relationship where the following occur: No concerns reported Const Orientation/consciousness: patient oriented x3 HENMT Ears: external ears normal General nose exam: Normal external nose present Face and sinus: Yes face symmetric Mouth: Normal oral and palatal mucosa present, oropharynx normal and moist mucous membranes Eyes General: appearance normal, both eyes and all related structures Neck Neck: Yes full ROM, Yes no lymphadenopathy and Yes supple Resp Effort & Inspection: normal respiratory effort and able to speak in complete sentences Auscultation: clear to auscultation bilaterally Cardio Other: S1-S2 present, regular in rate and rhythm no murmur GI Palpation (GI): Soft to palpation, nontender, no guarding and no masses Auscultation: normal bowel sounds Skin General skin exam: no rashes or lesions noted Neuro General: patient oriented x3, gait normal, tone normal and Normal light touch and pain sensation Extrem General: Yes full ROM, Yes no joint enlargement, Yes no clubbing, cyanosis or edema, Yes no calf tenderness and Yes normal gait Psych Appearance: grossly normal and well kempt Mental Status: mental status grossly normal Speech and movement: Normal speech and movement present Affect: normal affect Attitude: cooperative Thought process: Normal thought process present Thought content: Normal thought content present Results Reviewed Results Reviewed: Name: Kayla Sahu Age/Sex: 59/F : 1965 Unit#: [id number] Attend Dr: Karina Ward MD Re08/17/24 Status: DEP REF Location: [facility] Disch: SPEC : [id number] MEME: 08/17/24 STATUS: COMP REQ : [id number] RECD: 08/17/[address]: Karina Ward MD COMP: 08/17/24 ENTERED: 08/17/[address] [facility] DR: ORDERED: AST, ALT, Lipid Panel, Vitamin D 25-OH Test Result Flag Reference AST (GOT) 26 5-31 U/L ALT (GPT) 26 0-31 U/L Triglyceride 111 <150 mg/dL Desirable Triglyceride: less than 150 mg/dL Borderline High Triglyceride 150-199 mg/dL High Triglyceride: 200-499 mg/dL Very High Triglyceride: greater than or equal to 5OO mg/dL Cholesterol 229 H <200 mg/dL Desirable Cholesterol: less than 200 mg/dL Borderline High Cholesterol: 200-239 mg/dL High Cholesterol: greater than 239 mg/dL LDL Calculated 136 H <100 mg/dL Desirable LDL: less than 100 mg/dL Near Optimal/Above Optimal LDL: 110-129 mg/dL Borderline High LDL: 130-159 mg/dL High LDL: 160-189 mg/dL Very High LDL: greater than or equal to 190 mg/dL HDL 71 >40 mg/dL Desirable HDL: greater than 40 mg/dL Note: This HDL assay may give artificially low results in patients with liver disease. Vit D 25-OH Tot 68.6 >30 ng/mL Health Based Reference Values* < 20 ng/mL Deficient 20-30 ng/mL Insufficient > 30 ng/mL Sufficient Coding Level of Care Code Est Pt Level 4 (49830) Complex EM visit Add On G2211 Diagnoses Mixed dyslipidemia E78.2 Mild intermittent asthma without complication J45.20 Asthma complication type: uncomplicated Assessment & Plan Assessment & Plan (1) Mixed dyslipidemia: Code(s): E78.2 - Mixed hyperlipidemia Category: Medical (2) Mild intermittent asthma: Code(s): J45.20 - Mild intermittent asthma, uncomplicated Category: Medical Qualifiers: Asthma complication type: uncomplicated Qualified Code(s): J45.20 - Mild intermittent asthma, uncomplicated Plan During our visit, I discussed the current management of hypertension and hyperlipidemia with the patient. We reviewed the benefits of her lifestyle modifications, including exercise and dietary changes, noting their positive impact on her triglyceride levels and blood pressure. I emphasized the importance of continuing these practices and integrating more cardiovascular exercises, including the [employer] aquatic program, to enhance her lipid profile. We established a plan to monitor her progress with a follow-up for her lipid panel in December before her physical in March. We also reviewed necessary vaccinations, patient deferring to get vaccinated for the flu and RSV shots until after the holidays and confirmed the availability of the shingles vaccine. Continued adherence to her current medication regimen was advised since her blood pressure is well-controlled. Asthma stabel and controlled Orders: Orders Lipid Panel 03/02/25 E78.2 - Mixed hyperlipidemia, J45.20 - Mild intermittent asthma, uncomplicated Vitamin D 25-OH Total 03/02/25 E78.2 - Mixed hyperlipidemia, J45.20 - Mild intermittent asthma, uncomplicated Alanine Aminotransferase 03/02/25 E78.2 - Mixed hyperlipidemia, J45.20 - Mild intermittent asthma, uncomplicated Aspartate Amino Transferase 03/02/25 E78.2 - Mixed hyperlipidemia, J45.20 - Mild intermittent asthma, uncomplicated
[2024-08-20 13:26] VITALS: BP 116/78; PULSE 78; O2SAT 98; BMI 26.8
== END 2024-08-20 15:05 | disposition home or self-care (01) ==
PROVIDERS: PCP Internal Medicine; Visit Provider Internal Medicine
DX: E78.2 Mixed hyperlipidemia (principal); J45.20 Mild intermittent asthma, uncomplicated

== ENCOUNTER 2024-09-05 03:31 | Emergency (ER) | payer BC, SELFPAY ==
--- NOTE | ~2024-09-05 | XR_ITS ---
CLINICAL HISTORY: sob 2 view chest x-ray. Comparison: CR/SR - XR CHEST 1V - 07/31/21 04:21 EST Findings: No consolidation, pneumothorax, or effusion. Heart size normal. Impression: 1. No acute cardiopulmonary process. No focal pulmonary consolidation. This document has been electronically signed by: Mert Manning MD on 09/05/2024 04:34:47
[2024-09-05 03:38] VITALS: BP 159/83; PULSE 76; RESP 17; TEMP 36.8; O2SAT 98; BMI 27.3
[2024-09-05 04:14] VITALS: O2SAT 96
--- NOTE | 2024-09-05 04:20 | ED_ITS ---
HPI - URI/Sore Throat General Chief Complaint: Upper Respiratory Symptoms Stated Complaint: sob Time Seen by Provider: 09/05/24 04:19 Source: patient Mode of arrival: ambulatory Limitations: no limitations History of Present Illness ED Provider: HPI Narrative: Patient complaining of cough congestion nasal discharge subjective fever with chills for last 6 days does have mild intermittent asthma but she been wheezing more lately with mostly dry cough Related Data Home Medications ?Medication ?Instructions ?Recorded ?Confirmed albuterol sulfate 2.5 mg/3 mL 2.5 mg inhalation Q4-6H PRN 02/09/21 03/26/24 (0.083 %) solution for nebulization aspirin 81 mg tablet,delayed 81 mg PO DAILY 08/23/21 03/26/24 release (Adult Low Dose Aspirin) multivitamin 1 tab PO DAILY 08/23/21 03/26/24 nebulizers 10/05/22 03/26/24 Previous Rx's ?Medication ?Instructions ?Recorded inhalational spacing device #1 ea 02/09/21 (BreatheRite MDI Spacer) albuterol sulfate 90 mcg/actuation 2 puff inhalation Q4-6H PRN 02/21/23 aerosol inhaler shortness of breath or wheezing #8.5 grams cetirizine 10 mg tablet (All Day 10 mg PO BEDTIME PRN allergy 11/22/23 Allergy (cetirizine)) symptoms #90 tabs atorvastatin 10 mg tablet 10 mg PO DAILY #90 tabs 05/22/24 montelukast 10 mg tablet 10 mg PO BEDTIME #90 tabs 08/23/24 cefuroxime axetil 500 mg tablet 500 mg PO BID 7 days #14 tabs 09/05/24 codeine 10 mg-guaifenesin 100 mg/5 10 ml PO Q6H PRN cough #237 mL 09/05/24 mL oral liquid prednisone 20 mg tablet 40 mg (2 x 20 mg) PO DAILY #10 tabs 09/05/24 Allergies Allergy/AdvReac Type Severity Reaction Status Date / Time tiotropium AdvReac Intermediate Anxiety Verified 09/05/24 03:40 [From Spiriva with HandiHaler] Review of Systems 2 Review of Systems: Yes all other systems are reviewed and are negative PMFSH Past Medical History Medical History Dry eyes, bilateral Personal history of COVID-19 Chronic allergic rhinitis THOMAS (obstructive sleep apnea) Chronic [id number] syndrome History of COVID-19 Mixed dyslipidemia Mild intermittent asthma Pulmonary embolism Surgical History H/O breast biopsy History of partial hysterectomy H/O hemorrhoidectomy Family History Family History Father Diabetes mellitus Mother Arthritis Maternal Grandmother Breast cancer Maternal Aunt Breast cancer Brother No problems noted. Brother No problems noted. Sister No problems noted. Social History Social History Housing: House Alcohol intake: current Alcohol type: wine Patient Tobacco Use Status: Never used Tobacco e-Cigarette/Vaping Use: Never Used service: No Current occupational status: employed Current occupational exposures/hazards: No Cognitive needs: No Hearing needs: No Vision needs: Yes Physical Exam 2 Vital Signs: Vital Signs: Last Vital Signs Temp 97.7 F 09/05/24 05:56 Pulse 96 09/05/24 05:56 Resp 18 09/05/24 05:56 BP 140/74 H 09/05/24 05:56 Pulse Ox 96 09/05/24 05:56 O2 Del Method Room Air 09/05/24 05:56 BMI result Body Mass Index 27.3 Appearance: Alert. Oriented X3. No acute distress. ENT: Pharynx normal. Oral Mucosa moist clear nasal discharge Neck: Normal inspection. Neck supple. CVS: Normal heart rate and rhythm. Pulses normal. Respiratory: No respiratory distress. Equal air entry bilateral, bilateral prolonged expiration with wheezing Abdomen: Soft and nontender. Bowel sounds are present, no mass palpable, no CVA tenderness Skin: Skin warm and dry. Normal skin color. Normal skin turgor. Extremities: No lower extremity edema. No calf tenderness Neuro: Oriented X 3. Medications Administered Discontinued Medications Generic Name Dose Route Start Last Admin Trade Name Freq PRN Reason Stop Dose Admin Cefuroxime Axetil 500 mg 09/05/24 05:28 09/05/24 05:52 Cefuroxime Axetil 500 Mg Tablet PO 09/05/24 05:29 500 mg ONCE ONE Administration Guaifenesin/Codeine Phosphate 10 ml 09/05/24 04:21 09/05/24 05:18 Guaifen/Codeine Sf 200/20/10ml 10 Ml Liquid PO 09/05/24 04:22 10 ml ONCE ONE Administration Prednisone 40 mg 09/05/24 05:29 09/05/24 05:52 Prednisone 20 Mg Tablet PO 09/05/24 05:30 40 mg ONCE ONE Administration Medical Decision Making Medical Decision Making [facility] Narrative: Patient with asthmatic bronchitis COVID flu RSV negative improved after nebulizing treatment and prednisone discharge patient home on supportive treatment Differential Diagnosis Differential Diagnoses: The differential diagnosis associated with the presentation includes Viral bronchitis/pneumonia Lab Data [facility] Lab Attestation statement: I reviewed the patient's lab results. 09/05/24 04:28 09/05/24 04:28 Labs: Lab Results 09/05/24 09/05/24 Range/Units 04:20 04:28 WBC 6.1 (4.8-10.8) X10*3/uL RBC 4.19 L (4.20-5.50) X10*6/uL Hgb 12.5 (12.0-16.0) g/dl Hct 37.9 (37.0-47.0) % MCV 90.5 (80.0-98.0) fL MCH 29.8 (27.0-33.0) pg MCHC 33.0 (31.0-35.0) g/dl RDW 14.5 (11.0-16.0) % Plt Count 206 (160-400) X10*3/uL MPV 11.1 (9.4-12.3) fL Immature Gran % (Auto) 0.2 (0.0-0.4) % Neut % (Auto) 63.4 (45-73) % Lymph % (Auto) 20.4 (20-40) % [place] % (Auto) 11.8 H (2-11) % Eos % (Auto) 3.4 (0-4) % Baso % (Auto) 0.8 (0-2) % Lymph # (Auto) 1.2 (1.2-4.9) X10*3/uL [place] # (Auto) 0.7 (0.1-1.2) X10*3/uL Eos # (Auto) 0.2 (0.0-0.4) X10*3/uL Baso # (Auto) 0.1 (0.0-0.2) X10*3/uL Abs Immat Gran (auto) 0.01 (0.00-0.03) X10*3/uL Absolute Neuts (auto) 3.9 (2.0-8.3) x10*3/uL Absolute Nucleated RBC 0.000 (0.0-0.012) X10*3/uL Nucleated RBC % (auto) 0.0 (0.0-0.2) /100WBC Sodium 142 (135-145) mmol/L Potassium 3.9 (3.3-5.1) mmol/L Chloride 108 (96-108) mmol/L Carbon Dioxide 24 (22-29) mmol/L Anion Gap 14 (12-20) BUN 11 (9-16) mg/dL Creatinine 0.70 (0.5-1.4) mg/dL Estim Creat Clear Calc 88.2 Estimated GFR > 60 Random Glucose 99 (60-115) mg/dL Calcium 9.2 (8.4-10.2) mg/dL Total Bilirubin 0.6 (0.0-1.0) mg/dL AST 21 (5-31) U/L ALT 18 (0-31) U/L Alkaline Phosphatase 108 (39-117) U/L Total Protein 7.3 (6.5-8.0) g/dL Albumin 4.1 (3.5-5.0) g/dL Influenza Type A (PCR) NEGATIVE (Negative) Influenza Type B (PCR) NEGATIVE (Negative) RSV RNA Qual (PCR) NEGATIVE (Negative) SARS-CoV-2 RNA (RT-PCR) NEGATIVE (Negative) Independent Interpretation I performed an independent interpretation of an: Plain X-Ray Interpretation: NAD Discharge Plan Discharge Clinical Impression: Bronchitis Patient Disposition: Home, Self-Care Instructions: Acute Bronchitis (ED) Additional Instructions: Drink plenty of fluids Your COVID flu and RSV negative Take antibiotic as prescribed Cough drops as prescribed Prednisone as prescribed, use your inhaler at home Prescriptions: New prednisone 20 mg tablet 40 mg PO DAILY Qty: 10 0RF cefuroxime axetil 500 mg tablet 500 mg PO BID 7 Days Qty: 14 0RF codeine-guaifenesin 10-100 mg/5 mL liquid 10 ml PO Q6H PRN (Reason: cough) Qty: 237 0RF No Action cetirizine [All Day Allergy (cetirizine)] 10 mg tablet 10 mg PO BEDTIME PRN (Reason: allergy symptoms) Qty: 90 3RF atorvastatin 10 mg tablet 10 mg PO DAILY Qty: 90 1RF montelukast 10 mg tablet 10 mg PO BEDTIME Qty: 90 1RF albuterol sulfate 2.5 mg /3 mL (0.083 %) solution for nebulization 2.5 mg inhalation Q4-6H PRN (DME) BreatheRite MDI Spacer Spacer See Rx Instructions .ROUTE .MEDSUPPLY Qty: 1 0RF Rx Instructions: As directed albuterol sulfate 90 mcg/actuation HFA aerosol inhaler 2 puff inhalation Q4-6H PRN (Reason: shortness of breath or wheezing) Qty: 8.5 5RF aspirin [Adult Low Dose Aspirin] 81 mg tablet,delayed release (DR/EC) 81 mg PO DAILY multivitamin Tablet 1 tab PO DAILY (DME) nebulizers Misc See Rx Instructions .Route Rx Instructions: As directed Interventions: ED Discharge Assessment Last Done: 09/05/24 05:56 Discharge Date/Time: 09/05/24 06:02 Print Language: Georgian
[2024-09-05 04:40] LABS: Basophils Absolute Auto 0.1 X10*3/uL (0.0-0.2); Basophils Percent Auto 0.8 % (0-2); Eosinophils Absolute Auto 0.2 X10*3/uL (0.0-0.4); Eosinophils Percent Auto 3.4 % (0-4); Hematocrit 37.9 % (37.0-47.0); Hemoglobin 12.5 g/dl (12.0-16.0); Imm Gran Abs Auto 0.01 X10*3/uL (0.00-0.03); Imm Gran Pct Auto 0.2 % (0.0-0.4); Lymphocytes Absolute Auto 1.2 X10*3/uL (1.2-4.9); Lymphocytes Percent Auto 20.4 % (20-40); MANUAL DIFF FLAG NO; Mean Corpuscular Hemoglobin 29.8 pg (27.0-33.0); Mean Corpuscular Volume 90.5 fL (80.0-98.0); Mean Platelet Volume 11.1 fL (9.4-12.3); Monocytes Absolute Auto 0.7 X10*3/uL (0.1-1.2); Monocytes Percent Auto 11.8 % (2-11); Neutrophils Absolute Auto 3.9 x10*3/uL (2.0-8.3); Neutrophils Percent Auto 63.4 % (45-73); Platelet Count 206 X10*3/uL (160-400); Red Blood Count 4.19 X10*6/uL (4.20-5.50); Red Cell Distribution Width 14.5 % (11.0-16.0); White Blood Count 6.1 X10*3/uL (4.8-10.8)
[2024-09-05 05:06] LABS: Alanine Aminotransferase 18 U/L (0-31); Albumin Level 4.1 g/dL (3.5-5.0); Alkaline Phosphatase 108 U/L (39-117); Anion Gap 14 (12-20); Aspartate Amino Transferase 21 U/L (5-31); Bilirubin Total 0.6 mg/dL (0.0-1.0); Blood Urea Nitrogen 11 mg/dL (9-16); Calcium 9.2 mg/dL (8.4-10.2); Carbon Dioxide 24 mmol/L (22-29); Chloride 108 mmol/L (96-108); Creatinine Clr Calc Pharmacy 88.2; Estimated Glomerular Filt Rate > 60; Glucose Random 99 mg/dL (60-115); Potassium 3.9 mmol/L (3.3-5.1); Sodium 142 mmol/L (135-145); Total Protein 7.3 g/dL (6.5-8.0)
[2024-09-05 05:06] LABS: Influenza A PCR NEGATIVE (Negative); Influenza B PCR NEGATIVE (Negative); Resp Syncy Virus RNA Qual PCR NEGATIVE (Negative); SARS COV2 PCR INHOUSE NEGATIVE (Negative)
[2024-09-05] MEDS: guaiFEN/Codeine SF 200/20/10ML 10 ML LIQUID PO (05:18)
[2024-09-05] MEDS: predniSONE 20 MG TABLET 40 MG PO (05:52)
[2024-09-05] MEDS: cefuroxime axetiL 500 MG TABLET PO (05:52)
[2024-09-05 05:56] VITALS: BP 140/74; PULSE 96; RESP 18; TEMP 36.5; O2SAT 96
== END 2024-09-05 06:02 | disposition home or self-care (01) ==
PROVIDERS: Emergency Provider Internal Medicine; PCP Internal Medicine
DX: J40 Bronchitis, not specified as acute or chronic (principal); Z03.818 Encounter for observation for suspected exposure to other biological agents ruled out; E78.2 Mixed hyperlipidemia; J45.20 Mild intermittent asthma, uncomplicated; Z79.02 Long term (current) use of antithrombotics/antiplatelets; Z79.82 Long term (current) use of aspirin; Z79.899 Other long term (current) drug therapy
CPT/HCPCS: 0241U; 71046; 80053; 85025; 99283; 99284

== ENCOUNTER → 2024-09-05 03:45 | Outpatient (BNV) | payer BC, SELFPAY | PROVIDERS: Emergency Provider Internal Medicine; PCP Internal Medicine; Visit Provider Radiology Diagnostic Radiology | DX: R06.02 Shortness of breath (principal) | CPT/HCPCS: 71046 ==

== ENCOUNTER 2024-09-30 19:08 | Emergency (ER) | payer BC, SELFPAY ==
[2024-09-30 19:57] VITALS: BP 150/78; PULSE 76; RESP 16; TEMP 36.8; O2SAT 98; BMI 26.9
--- NOTE | 2024-09-30 20:22 | MHC.EDTECH ---
Patient brought into triage urine sample collected and sent to lab
[2024-09-30 20:31] LABS: Appearance Urine Turbid; Color Urine Yellow; Glucose Urine UA Negative (Negative); Leukocyte Esterase Urine Large (3+) (Negative); Nitrite Urine Negative (Negative); PH 6.5 (5.0-9.0); UMIC TRIGGER UACC YES; Urine Blood Large (3+) (Negative); Urine Ketones Negative (Negative); Urine Protein 30 (1+) mg/dL (Neg-Trace)
[2024-09-30 20:36] LABS: Bacteria Urine Trace (None Seen); RBC Urine >20 /HPF (0-2); UACC Culture Trigger YES; WBC Urine >50 /HPF (0-5)
--- NOTE | 2024-09-30 23:38 | ED.FEMALEGU ---
HPI - Female Genitourinary General Chief complaint: Urogenital-Female Stated complaint: ?UTI Time Seen by Provider: 09/30/24 23:23 Source: patient Limitations: no limitations History of Present Illness ED Provider: Joan Hernandez PA-C HPI Narrative: 59-year-old female presents with dysuria x1 day. Patient noted blood in her urine today. Denies back pain, abdominal pain, nausea vomiting or fever. Related Data Home Medications ?Medication ?Instructions ?Recorded ?Confirmed albuterol sulfate 2.5 mg/3 mL 2.5 mg inhalation Q4-6H PRN 02/09/21 03/26/24 (0.083 %) solution for nebulization aspirin 81 mg tablet,delayed 81 mg PO DAILY 08/23/21 03/26/24 release (Adult Low Dose Aspirin) multivitamin 1 tab PO DAILY 08/23/21 03/26/24 nebulizers 10/05/22 03/26/24 Previous Rx's ?Medication ?Instructions ?Recorded inhalational spacing device #1 ea 02/09/21 (BreatheRite MDI Spacer) albuterol sulfate 90 mcg/actuation 2 puff inhalation Q4-6H PRN 02/21/23 aerosol inhaler shortness of breath or wheezing #8.5 grams cetirizine 10 mg tablet (All Day 10 mg PO BEDTIME PRN allergy 11/22/23 Allergy (cetirizine)) symptoms #90 tabs atorvastatin 10 mg tablet 10 mg PO DAILY #90 tabs 05/22/24 montelukast 10 mg tablet 10 mg PO BEDTIME #90 tabs 08/23/24 cefuroxime axetil 500 mg tablet 500 mg PO BID 7 days #14 tabs 09/05/24 codeine 10 mg-guaifenesin 100 mg/5 10 ml PO Q6H PRN cough #237 mL 09/05/24 mL oral liquid prednisone 20 mg tablet 40 mg (2 x 20 mg) PO DAILY #10 tabs 09/05/24 cephalexin 500 mg capsule 500 mg PO BID #14 caps 09/30/24 phenazopyridine 200 mg tablet 200 mg PO TID PRN pain #10 tabs 09/30/24 (Pyridium) Allergies Allergy/AdvReac Type Severity Reaction Status Date / Time tiotropium AdvReac Intermediate Anxiety Verified 09/30/24 19:59 [From Spiriva with HandiHaler] Review of Systems Review of Systems: Yes all other systems are reviewed and are negative Constitutional: Constitutional: Denies fatigue and Denies fever(s) Cardiovascular: Cardiovascular: Denies chest pain and Denies dyspnea Respiratory: Respiratory: Denies dyspnea Gastrointestinal: Gastrointestinal: Denies abdominal pain, Denies nausea and Denies vomiting Genitourinary: Genitourinary: Reports hematuria, Reports dysuria and Denies flank pain Musculoskeletal: Musculoskeletal: Denies back pain Endocrine: Endocrine: Denies fatigue [facility] Past Medical History Attestation statement: The following information was validated with the patient. Medical History Dry eyes, bilateral Personal history of COVID-19 Chronic allergic rhinitis THOMAS (obstructive sleep apnea) Chronic [id number] syndrome History of COVID-19 Mixed dyslipidemia Mild intermittent asthma Pulmonary embolism Surgical History H/O breast biopsy History of partial hysterectomy H/O hemorrhoidectomy Family History Family History Father Diabetes mellitus Mother Arthritis Maternal Grandmother Breast cancer Maternal Aunt Breast cancer Brother No problems noted. Brother No problems noted. Sister No problems noted. Social History Social History Housing: House Alcohol intake: current Alcohol type: wine Patient Tobacco Use Status: Never used Tobacco e-Cigarette/Vaping Use: Never Used Advance Directives: No Advance Directives Information Provided: No Do you have a plan to hurt others: No Plan service: No Current occupational status: employed Current occupational exposures/hazards: No Cognitive needs: No Hearing needs: No Vision needs: Yes Physical Exam Vital Signs: Vital Signs: Last Vital Signs Temp 98.3 F 09/30/24 19:57 Pulse 76 09/30/24 19:57 Resp 16 09/30/24 19:57 BP 150/78 H 09/30/24 19:57 Pulse Ox 98 09/30/24 19:57 O2 Del Method Room Air 09/30/24 19:57 BMI result Body Mass Index 26.9 Const: Other: Alert, well-appearing Orientation/consciousness: patient oriented x3 Resp: Effort & Inspection: normal respiratory effort Cardio: Other: Normal peripheral perfusion GI: Other: Soft nondistended nontender Back/Spine/Pelvis: Other: No CVA tenderness Skin: Other: Warm dry no rash Neuro: General: patient oriented x3, gait normal, no focal motor deficits and CN's II-XI intact bilaterally Psych: Other: Cooperative Medical Decision Making Medical Decision Making MDM Narrative: 59-year-old female presents with dysuria x1 day. Patient noted blood in her urine today. Denies back pain, abdominal pain, nausea vomiting or fever. No chronic issues History: Per patient I have considered the following differential diagnoses: UTI, pyelonephritis, renal colic Plan: Urinalysis obtained from triage she has a urinary tract infection, she has no systemic symptoms to suggest pyelonephritis, she is also not having any back or abdominal pain, or active GI symptoms to suggest renal colic. I have independently reviewed the following tests: Labs: UA indicative of likely infection Lab Data Labs: Lab Results 09/30/24 Range/Units 20:22 Urine Color Yellow Urine Appearance Turbid Urine pH 6.5 (5.0-9.0) Ur Specific [place] 1.010 (1.005-1.025) Urine Protein 30 (1+) H (Neg-Trace) mg/dL Urine Glucose (UA) Negative (Negative) mg/dL Urine Ketones Negative (Negative) mg/dL Urine Blood Large (3+) H (Negative) Urine Nitrite Negative (Negative) Ur Leukocyte Esterase Large (3+) H (Negative) Urine RBC >20 H (0-2) /HPF Urine WBC >50 H (0-5) /HPF Ur Squamous Epith Cells 3-5 (0-2) /HPF Urine Bacteria Trace (None Seen) Hyaline Casts 3-5 (0-2) /LPF Discharge Plan Discharge Clinical Impression: Urinary tract infection Patient Disposition: Home, Self-Care Instructions: Urinary Tract Infection in Women (ED) Additional Instructions: You were found to have a urinary tract infection. See home care instructions. Use the cephalexin as directed this is her antibiotic. Use the Pyridium as needed, this is for bladder pain. Follow up with your primary care provider as needed. Prescriptions: New cephalexin 500 mg capsule 500 mg PO BID Qty: 14 0RF phenazopyridine [Pyridium] 200 mg tablet 200 mg PO TID PRN (Reason: pain) Qty: 10 0RF No Action cetirizine [All Day Allergy (cetirizine)] 10 mg tablet 10 mg PO BEDTIME PRN (Reason: allergy symptoms) Qty: 90 3RF atorvastatin 10 mg tablet 10 mg PO DAILY Qty: 90 1RF montelukast 10 mg tablet 10 mg PO BEDTIME Qty: 90 1RF prednisone 20 mg tablet 40 mg PO DAILY Qty: 10 0RF cefuroxime axetil 500 mg tablet 500 mg PO BID 7 Days Qty: 14 0RF codeine-guaifenesin 10-100 mg/5 mL liquid 10 ml PO Q6H PRN (Reason: cough) Qty: 237 0RF albuterol sulfate 2.5 mg /3 mL (0.083 %) solution for nebulization 2.5 mg inhalation Q4-6H PRN (DME) BreatheRite MDI Spacer Spacer See Rx Instructions .ROUTE .MEDSUPPLY Qty: 1 0RF Rx Instructions: As directed albuterol sulfate 90 mcg/actuation HFA aerosol inhaler 2 puff inhalation Q4-6H PRN (Reason: shortness of breath or wheezing) Qty: 8.5 5RF aspirin [Adult Low Dose Aspirin] 81 mg tablet,delayed release (DR/EC) 81 mg PO DAILY multivitamin Tablet 1 tab PO DAILY (DME) nebulizers Mis See Rx Instructions .Route Rx Instructions: As directed Print Language: New Zealander
[2024-09-30] MEDS: cephALEXin 500 MG CAPSULE PO (23:53)
[2024-09-30] MEDS: Phenazopyridine HCL 200 MG TABLET PO (23:53)
[2024-09-30 23:55] VITALS: BP 134/82; PULSE 79; RESP 18; TEMP 36.5; O2SAT 98
== END 2024-09-30 23:55 | disposition home or self-care (01) ==
PROVIDERS: Emergency Provider Emergency Medicine; PCP Internal Medicine
DX: N39.0 Urinary tract infection, site not specified (principal); R30.0 Dysuria; R31.9 Hematuria, unspecified; Z79.899 Other long term (current) drug therapy
CPT/HCPCS: 81001; 87086; 87088; 87186; 99283

== ENCOUNTER 2025-03-17 06:35 | Outpatient (REF) | payer BC, SELFPAY ==
[2025-03-17 08:15] LABS: Alanine Aminotransferase 20 U/L (0-31); Aspartate Amino Transferase 24 U/L (5-31); Cholesterol 188 mg/dL (<200); HDL Cholesterol 56 mg/dL (>40); Triglycerides 138 mg/dL (<150)
== END 2025-03-17 06:36 | disposition home or self-care (01) ==
LOC: HO.LAB 06:35
PROVIDERS: PCP Internal Medicine; Visit Provider Internal Medicine
DX: E78.2 Mixed hyperlipidemia (principal); J45.20 Mild intermittent asthma, uncomplicated
CPT/HCPCS: 36415; 80061; 82306; 84450; 84460

== ENCOUNTER 2025-03-22 09:53 | Outpatient (AMB) | payer BC, SELFPAY ==
--- OUTSIDE RECORDS SUMMARY | 2025-03-22 10:37 | XMS_ITS | Patient Health Record ---
Author Organization [facility] Address [address] [place] [address] Care Team Providers Care Conflicts Analyst Name Role Phone Ed CURIEL, Karina Primary Care Provider Keith Marquez [phone] Reason For Referral No Information Plan Of Treatment No Information Insurance Providers Payer Name Payer Address Payer Phone Subscriber Number Group Number Insured Name Patient Relationship to Insured Coverage Start Date Coverage End Date [facility] PROFESSIONAL CLAIMS [address] [place] [address] [id number] 2 DIEGO MAZA Self - patient is the insured Medical (General) History Medical History History ICD Code colonoscopy 03-20-2011 rectal polyp asthma Surgical History Surgery Date(Month/Year) hysterectomy for fibroids hemorrhoidectomy broken leg surgery
[2025-03-22 10:57] VITALS: BP 110/72; PULSE 66; RESP 17; O2SAT 97; BMI 25.5
--- NOTE | 2025-03-22 10:57 | A.OFFPC_ITS ---
Vital Signs 03/22/25 10:57 Height 5 ft 6 in Weight 158 lb BMI 25.5 BP 110/72 Blood Pressure Location Lt brachial Position Sitting Respiration 17 Pulse 66 Pulse Source Pulse Oximeter Pulse Oximetry (%) 97 Oxygen Delivery Method Room Air Intake Visit Reasons: PE Intake Note: Pt is here today for her PE: last mammogram 05/27/24, colonoscopy 12/30/14 Allergies tiotropium (From Spiriva with HandiHaler) Adverse Reaction (Intermediate, Verified 03/22/25 11:35) Anxiety Medication List - Last Reconciled 03/22/25 by Karina Ward MD albuterol sulfate 2.5 mg inhalation Q4-6H PRN albuterol sulfate 90 mcg/actuation 2 puffs inhalation Q4-6H PRN aspirin (Adult Low Dose Aspirin) 81 mg PO DAILY atorvastatin 10 mg PO DAILY cetirizine (All Day Allergy (cetirizine)) 10 mg PO BEDTIME PRN inhalational spacing device (BreatheRite MDI Spacer) As directed montelukast 10 mg PO BEDTIME multivitamin 1 tab PO DAILY nebulizers As directed Tobacco use date assessed: 03/22/25 Dental Screening Dental Screen Date: 03/22/25 Did you have a dental visit in the last 12 months?: Yes Did you have a dental problem in the last 6 months where you did not have access to dental care?: Yes Was dental information given to patient?: Patient has dentist HPI PE HPI Details - The patient is a 60-year-old female pr esenting For her physical examination and management of chronic conditions. - she has Obstructive sleep apnea: Foll ow-up scheduled with Dr. Reece. CPAP machine not in use due to defect; exploring alternatives. - Asthma: Well-controlled with minimal e pisodes; requires albuterol inhaler refill. - Vitamin D deficiency: Levels dropped s lightly despite recent travel; possibly due to indoor activities. - Hemorrhoids: Stable condition. - Tension headache: Improved with muscle rub and Salonpas patches. - Preventative care: Up to date with RSV and pneumonia vaccinations; shingles vaccine pending. - Preventative care: Opted for Cologuard test for colon cancer screening. - Preventative care: Regular eye examina tions maintained. -dyslipidemia currently on atorvastatin 10 mg daily. Recent fasting labs showed lipids, liver enzymes are within normal limits. [facility] Medical History Dry eyes, bilateral Personal history of COVID-19 Chronic allergic rhinitis THOMAS (obstructive sleep apnea) Chronic [id number]-23 syndrome History of COVID-19 Mixed dyslipidemia Mild intermittent asthma Pulmonary embolism Surgical History H/O breast biopsy History of partial hysterectomy H/O hemorrhoidectomy Family History Father Diabetes mellitus Mother Arthritis Maternal Grandmother Breast cancer Maternal Aunt Breast cancer Brother No problems noted. Brother No problems noted. Sister No problems noted. Social History Housing: House Alcohol intake: current Alcohol type: wine Patient Tobacco Use Status: Never used Tobacco e-Cigarette/Vaping Use: Never Used service: No Current occupational status: employed Current occupational exposures/hazards: No Cognitive needs: No Hearing needs: No Vision needs: Yes Questionnaire PHQ-9 Over the last 2 weeks, how often have you been bothered by any of the following problems? 1. Little interest or pleasure in doing things: not at all 2. Feeling down, depressed, or hopeless: not at all 3. Trouble falling or staying asleep, or sleeping too much: several days 4. Feeling tired or having little energy: several days 5. Poor appetite or overeating: not at all 6. Feeling bad about yourself - or that you are a failure or have let yourself or your family down: not at all 7. Trouble concentrating on things, such as reading the newspaper or watching television: not at all 8. Moving or speaking so slowly that other people could have noticed. Or the opposite - being so fidgety or restless that you have been moving around a lot more than usual: not at all 9. Thoughts that you would be better off or of hurting yourself in some way: not at all Total score: 2 Depression Screening Interpretation: Negative Depression Screening Done: Yes 66465 - PHQ-9 Billing: Yes Source: Developed by Drs. Keith Garner, Lilly B.WDuarte Shipman and colleagues, with an educational rosario from [employer]. Thrive Questionnaire Date Thrive assessed: 03/15/25 I am a: Patient What is your living situation today?: I have a steady place to live Within the past 12 months, did the food you bought not last and you didn't have the money to get more?: Never true Within the past 12 months, did you worry whether your food would run out before you got money to buy more?: Never true Do you have trouble paying for medicines?: No Do you have trouble getting transportation to medical appointments?: No Do you have trouble paying your heating and electricity bill?: No Do you have trouble taking care of your child, family member or friend?: No Do you have trouble with day-to-day activities such as bathing, preparing meals, shopping, managing finances, etc.?: No Are you currently unemployed and looking for a job?: No Are you interested in more education?: No Please select the resources that you would like help with: None Currently or been in a relationship where the following occur: No concerns reported THRIVE Score: 0 AUDIT C Alcohol Use Questionnaire (AUDIT-C) 1. How often do you have a drink containing alcohol?: 2-4 times a month 2. How many drinks containing alcohol do you have on a typical day when you are drinking?: 3 or 4 3. How often do you have six or more drinks on one occasion?: Weekly Total Score: 6 AIDA-7 AMB Questionnaire AIDA-7 Date AIDA - 7 assessed: 03/22/25 Feeling nervous, anxious, or on edge: 0 = Not at all Not being able to stop or control worryin = Not at all Worrying too much about different things: 0 = Not at all Trouble relaxin = Not at all Being so restless that it is hard to sit still: 0 = Not at all Becoming easily annoyed or irritable: 1 = Several days Feeling afraid as if something awful might happen: 0 = Not at all Total AIDA-7 score (0-4 normal; 5-9 mild; 10-14 moderate; 15-21 severe): 1 Source: Developed by Drs. Keith Garner, Duarte Vlilar and colleagues, with an educational rosario from [employer] ACT Questionnaire In the past 4 weeks, how much of the time did your asthma keep you from getting as much done at work, school or at home?: None of the time During the past 4 weeks, how often have you had shortness of breath?: 1-2 times a week During the past 4 weeks, how often did your asthma symptoms wake you up at night or earlier than usual in the morning?: Not at all During the past 4 weeks, how often have you had to use your rescue inhaler or nebulizer medication?: Once a week or less How would you rate your asthma control during the past 4 weeks?: Well controlled ACT Interpretation: Negative Score: 22 Review of Systems Const Reports no additional complaints Eyes Denies change in vision ENT Reports no additional complaints Card Denies chest pain, Denies rapid heart rate, Denies irregular heart rhythm, Denies lightheadedness and Denies dyspnea Resp Denies cough and Denies dyspnea GI Reports no additional complaints Reports no additional complaints Musc Denies no additional complaints Skin/Breast Denies breast swelling, Denies breast pain, Denies breast mass and Denies rash Neuro Denies no additional complaints Psych Reports no additional complaints Endo Reports no additional complaints Bird/Lymph Reports no additional complaints Aller/Immun Reports seasonal rhinorrhea Physical exam (Primary Care) Vital Signs: Last Vital Signs Pulse 66 03/22/25 10:57 Resp 17 03/22/25 10:57 BP 110/72 03/22/25 10:57 Pulse Ox 97 03/22/25 10:57 Oxygen Delivery Method Room Air 03/22/25 10:57 BMI result Body Mass Index 25.5 Tobacco/Smoking Status: Tobacco use Status Tobacco use date assessed 03/22/25 03/22/25 11:12 Patient Tobacco Use Status Never used Tobacco 03/22/25 10:58 e-Cigarette/Vaping Use Never Used 03/22/25 10:58 PHQ-9: PHQ-9 Score PHQ-9: Total score 2 03/22/25 11:41 Depression Screening Interpretation: Negative Thrive Assessment: Date of Thrive Assessment Date Thrive assessed 03/15/25 03/22/25 10:58 Currently or been in a relationship where the following occur: No concerns reported Const Orientation/consciousness: patient oriented x3 HENMT Ears: external ears normal General nose exam: Normal external nose present Face and sinus: Yes face symmetric Mouth: Normal oral and palatal mucosa present, oropharynx normal and moist mucous membranes Eyes General: appearance normal, both eyes and all related structures Neck Neck: Yes full ROM, Yes no lymphadenopathy and Yes supple Chest Breast/axilla inspection: normal inspection of the breasts Breast/axilla palpation: normal palpation of the breasts Resp Effort & Inspection: normal respiratory effort and able to speak in complete sentences Auscultation: clear to auscultation bilaterally Cardio Other: S1-S2 present, regular in rate and rhythm no murmur GI Palpation (GI): Soft to palpation, nontender, no guarding and no masses Auscultation: normal bowel sounds General: Yes no CVA tenderness Back/Spine/Pelvis Back: no CVA tenderness and No back tenderness Skin General skin exam: no rashes or lesions noted Neuro General: patient oriented x3, gait normal, tone normal and Normal light touch and pain sensation Extrem General: Yes full ROM, Yes no joint enlargement, Yes no clubbing, cyanosis or edema, Yes no calf tenderness and Yes normal gait Psych Appearance: grossly normal and well kempt Mental Status: mental status grossly normal Speech and movement: Normal speech and movement present Affect: normal affect Results Reviewed Results Reviewed: Name: aKyla Sahu Age/Sex: 60/F : 1965 Unit#: [id number] Attend Dr: Karina Ward MD Re03/17/25 Status: DEP [facility] SPEC : [id number] MEME: 03/17/25 STATUS: COMP REQ : [id number] RECD: 03/17/[address]: Karina Ward MD COMP: 03/17/2532 ENTERED: 03/17/[address]: ORDERED: AST, ALT, Lipid Panel, Vitamin D 25-OH Test Result Flag Reference AST (GOT) 24 5-31 U/L ALT (GPT) 20 0-31 U/L Triglyceride 138 <150 mg/dL Desirable Triglyceride: less than 150 mg/dL Borderline High Triglyceride 150-199 mg/dL High Triglyceride: 200-499 mg/dL Very High Triglyceride: greater than or equal to 5OO mg/dL Cholesterol 188 <200 mg/dL Desirable Cholesterol: less than 200 mg/dL Borderline High Cholesterol: 200-239 mg/dL High Cholesterol: greater than 239 mg/dL LDL Calculated 105 H <100 mg/dL Desirable LDL: less than 100 mg/dL Near Optimal/Above Optimal LDL: 110-129 mg/dL Borderline High LDL: 130-159 mg/dL High LDL: 160-189 mg/dL Very High LDL: greater than or equal to 190 mg/dL HDL 56 >40 mg/dL Desirable HDL: greater than 40 mg/dL Note: This HDL assay may give artificially low results in patients with liver disease. Vitamin D 25-OH 37.5 >30 ng/mL Health Based Reference Values* < 20 ng/mL Deficient 20-30 ng/mL Insufficient > 30 ng/mL Sufficient Coding Level of Care Code Est Pt Prev Care 40-64y(25719) Diagnoses Environmental allergies Z91.09 Mixed dyslipidemia E78.2 Chronic allergic rhinitis J30.9 Mild intermittent asthma without complication J45.20 Asthma complication type: uncomplicated THOMAS (obstructive sleep apnea) G47.33 Dry eyes, bilateral H04.123 Annual visit for general adult medical examination with abnormal findings Z00.01 Additional Codes Asthma Control Questionnaire - ACT Interpretation: Negative ([id number]) PHQ-9 - 62203 - PHQ-9 Billing: Yes ([id number]) Assessment & Plan Assessment & Plan (1) Environmental allergies: Code(s): Z91.09 - Other allergy status, other than to drugs and biological substances Category: Medical (2) Mixed dyslipidemia: Code(s): E78.2 - Mixed hyperlipidemia Category: Medical (3) Chronic allergic rhinitis: Code(s): J30.9 - Allergic rhinitis, unspecified Category: Medical (4) Mild intermittent asthma: Code(s): J45.20 - Mild intermittent asthma, uncomplicated Category: Medical Qualifiers: Asthma complication type: uncomplicated Qualified Code(s): J45.20 - Mild intermittent asthma, uncomplicated (5) THOMAS (obstructive sleep apnea): Code(s): G47.33 - Obstructive sleep apnea (adult) (pediatric) Category: Medical (6) Dry eyes, bilateral: Comment: [facility] uses Thera tears prn Code(s): H04.123 - Dry eye syndrome of bilateral lacrimal glands Category: Medical (7) Annual visit for general adult medical examination with abnormal findings: Code(s): Z00.01 - Encounter for general adult medical examination with abnormal findings Plan During the visit, we discussed the management of obstructive sleep apnea, including the need for a follow-up with Dr. Reece and exploring alternatives to the CPAP machine. We reviewed the patient's asthma management, ensuring she has a refill for her albuterol inhaler. We addressed the slight decrease in vitamin D levels, recommending dietary adjustments and increased outdoor activity. For tension headaches, I advised the use of muscle rub and Salonpas patches. We discussed the importance of completing the Cologuard test for colon cancer screening and maintaining regular eye examinations. I recommended the shingles vaccine as part of her preventative care. We agreed to schedule her next wellness visit in a year to reassess her health status and update any necessary screenings or vaccinations. Orders: Referrals Cologuard Test Z12.11 - Encounter for screening for malignant neoplasm of colon, Z12.12 - Encounter for screening for malignant neoplasm of rectum Medications: Refilled albuterol sulfate 90 mcg/actuation 2 puffs inhalation Q4-6H PRN 8.5 grams 5RF shortness of breath or wheezing atorvastatin 10 mg PO DAILY 90 tabs 4RF
== END 2025-03-22 11:51 | disposition home or self-care (01) ==
LOC: HO.HMCC 09:53
PROVIDERS: PCP Internal Medicine; Visit Provider Internal Medicine
DX: Z91.09 Other allergy status, other than to drugs and biological substances (principal); E78.2 Mixed hyperlipidemia; J30.9 Allergic rhinitis, unspecified; J45.20 Mild intermittent asthma, uncomplicated; G47.33 Obstructive sleep apnea (adult) (pediatric); H04.123 Dry eye syndrome of bilateral lacrimal glands; Z00.01 Encounter for general adult medical examination with abnormal findings

== ENCOUNTER → 2025-03-22 09:53 | Outpatient (BNVA) | payer BC, SELFPAY | PROVIDERS: PCP Internal Medicine; Visit Provider Internal Medicine | DX: Z00.01 Encounter for general adult medical examination with abnormal findings (principal); G47.33 Obstructive sleep apnea (adult) (pediatric); J45.909 Unspecified asthma, uncomplicated; E55.9 Vitamin D deficiency, unspecified; K64.9 Unspecified hemorrhoids; E78.2 Mixed hyperlipidemia; J45.20 Mild intermittent asthma, uncomplicated; H04.123 Dry eye syndrome of bilateral lacrimal glands; Z91.09 Other allergy status, other than to drugs and biological substances; Z99.89 Dependence on other enabling machines and devices | CPT/HCPCS: 96127; 96160 ==

== ENCOUNTER 2025-05-07 15:06 | Outpatient (AMB) | payer BC, SELFPAY ==
--- OUTSIDE RECORDS SUMMARY | 2025-05-07 15:09 | XMS_ITS | Patient Health Record ---
Author Organization [facility] Address [address] [place] [address] Care Team Providers Care Medical Appointment Scheduler Name Role Phone Ed CURIEL, Karina Primary Care Provider Keith Marquez [phone] Reason For Referral No Information Plan Of Treatment No Information Insurance Providers Payer Name Payer Address Payer Phone Subscriber Number Group Number Insured Name Patient Relationship to Insured Coverage Start Date Coverage End Date [facility] PROFESSIONAL CLAIMS [address] [place] [address] [id number] DIEGO MAZA Self - patient is the insured Medical (General) History Medical History History ICD Code colonoscopy 03-20-2011 rectal polyp asthma Surgical History Surgery Date(Month/Year) hysterectomy for fibroids hemorrhoidectomy broken leg surgery
--- NOTE | 2025-05-07 15:12 | A.OFFVIS_ITS ---
Vital Signs 05/07/25 15:13 Height 5 ft 6 in Weight 162 lb 0.636 oz BMI 26.2 BP 110/60 Blood Pressure Location Rt brachial Position Sitting Pulse 94 Pulse Source Pulse Oximeter Pulse Oximetry (%) 98 Oxygen Delivery Method Room Air Intake Visit Reasons: Obstructive sleep apnea Bedspread Inspector Required: No Accompanied by: Self / Same As Patient Allergies tiotropium (From Spiriva with HandiHaler) Adverse Reaction (Intermediate, Verified 05/07/25 15:14) Anxiety HPI Comments Details: The patient is a 60-year-old woman with a known history of asthma. She complains worsening daytime drowsiness with an [place] score 10/24. she does take naps during the daytime. And she also complains of headaches at times in the morning. Ofkc-qx-khnjxloz in severity. is concerned because he has with his significant apneic episodes and severe snoring. The patient needs to a sleep study done at this time to further address the issues with the meantime she continues with respiratory regimen. If she continues to of chest tightness and wheezing. Umze-on-hujqseqb in severity. she does pets at and she has not had any recent allergy testing. she does feel that her breathing became worse recovering COVID-19 during that time she did have a chest x-ray was personally reviewed by me demonstrating some subtle changes primarily at the bases. 04/17/2021 the patient is here for pulmonary follow-up visit. She continues to have significant daytime drowsiness with an elevated [place] score of 11/24. Her significant other is with her and he is concerned again because her apneic episodes and severe snoring. The patient was ordered to have a home sleep study but it was denied for unclear reason specially with increased cardiovascular risk factors and her significant documented apneic episodes. At this point I will request in-lab sleep study which in her case will be more accurate. Due to the COVID 19 precautions I cannot check her Mallampati score and I cannot assess any degree of retrognathia. But, the biggest concern is her significant snoring in addition to apneic episodes along with her cardiovascular risk factors in her significant daytime drowsiness. Again we will discuss this further with her insurance company which she this point appears to be restri cting adequate care. in regards of her asthma she did try the Spiriva but after several dosages she felt dizzy and had palpitations and could not tolerated. Therefore will avoid long-acting muscarinic antagonist at this point. She continues uses Symbicort. We did look at her allergy testing which demonstrated significant allergies specially to cats. She does have cats at home. I did request that she keeps the CT away from bed meantime she is going to continue the singular I will add additional allergy medicine, loratadine which she can take in the morning. If her symptoms persist continues to have significant difficulties with her asthma control then we can consider Xolair specially with her elevated IgE of 800. also to note during the blood work she did have a slight elevation in the LIT titer of 1:80. in addition to that her white count was slightly elevated with a left shift. Not on reasonable to check these in the future. 06/13/2021 the patient is here for a pulmonary follow-up visit. Since we last spoke the patient continues to have significant daytime drowsiness. Her [place] score is elevated at 13 over 24. Her significant other reports significant snoring and apneic episodes. She did have a in-lab sleep study demonstrating moderate sleep apnea with an average AHI of 16. Although, up to 40 events an hour when she laid her back. She did desaturate to the 80s when she had the apneic episodes. The patient does have risk factors including dyslipidemia and ongoing daytime drowsiness. Therefore she needs to start CPAP at this time TESS. In regards of her asthma seems to be doing better with her current respiratory regimen and allergy therapy. 10/05/2021 the patient is here for pulmonary follow-up visit. Overall the patient has been doing much better. The APAP machine took a while to be delivered due to the pandemic which she finally started sometime in early September. She has been trying to get used to the therapy but she has already noticed improvements in her quality of 3 and her significant daytime drowsiness. She does have a fullface mask. Sometimes she does take off her mask in the middle the night because she feels like is bothering her. It is likely that she is having increasing pressures. I did recommend she try to just showed often turned back on to restart the pressures. We did download the machine it appears that her AHI is around 5. her average pressure is 10 centimeters and she does go up to the maximum pressure of 16 centimeters. However is likely that the patient needs additional pressures. However, this point she probably will not tolerated. Therefore we will increase in minimum pressure to try to bring it closer to the therapeutic range. In the meantime her asthma symptoms have been stable. She has not required her short-acting beta agonist. She continues uses Symbicort and also her allergy medications. 04/11/2022 the patient is here for a pulmonary follow-up visit. She has been using her CPAP every night. The CPAP therapy has been affecting beneficial. Initially was difficult for her to get used to it. She could not find the right mask and the pressures were too high. Ultimately, her mother got sick and she had to go and take care of her mother in [place] for several weeks. He was hard for her to take care of her mom in use the CPAP. Therefore there is a. That he she cannot use it. However, when she got back and she got the right supplies in the right mask she has been using it. She does have severe sleep apnea. Using the CPAP has improved her daytime drowsiness. In view of her difficulties initially tolerating the machine we did call the [employer] company to see if they could appeal to the insurance company in order to get an extension will be can demonstrate that she is using the machine effectively. In the meantime her asthma has been stable she does have a rescue inhaler that she does not require. She does use Symbicort on a daily basis. She also is using her allergy medicines with good effect. 10/05/2022 the patient is here for pulmonary follow-up visit. The patient overall has been doing good. She has not been using her CPAP. She is no longer getting supplies from the company. Is hard for her to tolerated. Now the patient can not use the CPAP because she does not have the proper supplies. She has been able to sleep without it. She still having some daytime drowsiness. Her [place] score is elevated 24. Will go ahead and repeat her sleep study in order to get her reactivated with a [employer] company in order for her to get supplies in order to be able to use her CPAP adequately. Her asthma appears to be in good control. She has not required her rescue inhaler. She does continue with her allergy medicines. Otherwise patient is without any complaints per will follow-up after her sleep study. 05/07/2025 the patient is here for pulmonary follow-up visit. The patient overall has been doing well. She continues to have significant daytime drowsiness with an elevated [place] score of 10/24. Although she tried and failed CPAP. She could not tolerate it at all and she therefore is not using it any longer. However, she does have underlying sleep apnea she does have retrognathia putting her at risk for indeed airway obstruction. Therefore, the patient should consider a oral mandibular device at this time. We did talk about considering referral to dentist that is specializing in that. She can also talk to her own dentist about it. The patient also has been using her Symbicort. The Symbicort therapy has been affecting beneficial. She has not required any prednisone or antibiotics recently. She is up-to-date with the vaccines. The patient will go ahead and follow-up in a year's time. If she has any issues prior to this she will call. If she would like a referral to a dentist for an oral mandibular device we can also make that arrangement. Ideally if she does get an oral mandibular device we can also repeat a sleep study afterwards to assess her response to the intervention. If she has any issues prior to the next visit she can always call for further recommendations. 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 Brother No problems noted. Sister No problems noted. Social History Housing: House Alcohol intake: current Alcohol type: wine Patient Tobacco Use Status: Never used Tobacco e-Cigarette/Vaping Use: Never Used service: No Current occupational status: employed Current occupational exposures/hazards: No Cognitive needs: No Hearing needs: No Vision needs: Yes Review of Systems Const Reports daytime sleepiness, Denies difficulty sleeping and Reports snoring ENT Denies dysphagia, Reports nasal congestion and Reports nasal discharge Card Denies chest pain Resp Reports cough, Reports snoring and Denies wheezing GI Denies constipation, Denies GI cramping and Denies dysphagia Musc Denies no additional complaints Neuro Denies no additional complaints Aller/Immun Reports seasonal rhinorrhea and Denies wheezing Physical Exam Vital Signs: Last Vital Signs Pulse 94 05/07/25 15:13 BP 110/60 05/07/25 15:13 Pulse Ox 98 05/07/25 15:13 Oxygen Delivery Method Room Air 05/07/25 15:13 BMI result Body Mass Index 26.2 Const General: alert Neck Neck: Yes normal visual inspection, Yes full ROM and Yes no lymphadenopathy Chest Chest palpation & inspection: normal inspection of the chest Resp Auscultation: clear to auscultation bilaterally Cardio Rate: regular rate Rhythm: regular rhythm Heart sounds: S1 normal heart sound present and S2 normal heart sound present GI Palpation (GI): Soft to palpation and nontender Auscultation: normal bowel sounds Skin General skin exam: rashes and/or lesions noted Assessment & Plan Assessment & Plan (1) THOMAS (obstructive sleep apnea): Code(s): G47.33 - Obstructive sleep apnea (adult) (pediatric) Category: Medical (2) Asthma: Code(s): J45.909 - Unspecified asthma, uncomplicated Category: Medical Qualifiers: Asthma severity: mild Asthma persistence: intermittent Asthma complication type: uncomplicated Qualified Code(s): J45.20 - Mild intermittent asthma, uncomplicated (3) Chronic allergic rhinitis: Code(s): J30.9 - Allergic rhinitis, unspecified Category: Medical Plan Continue Symbicort with spacer Continue singular at nighttime and Claritin in the morning Failed CPAP, would benefit from an oral mandular device (OMD). Would recommend referral to Dental sleep specialist. Would benefir from a repeat PSG after OMD provided. allergy avoidance. Needs to keep the cats specially away from her bedroom. consider allergy shots. Consider Xolair if her symptoms worsen. Follow-up 8-12 months Coding Level of Care Code Est Pt Level 4 (39768) Diagnoses THOMAS (obstructive sleep apnea) G47.33 Mild intermittent asthma without complication J45.20 Asthma severity: mild Asthma persistence: intermittent Asthma complication type: uncomplicated Chronic allergic rhinitis J30.9 Time Spent (min) 16
[2025-05-07 15:13] VITALS: BP 110/60; PULSE 94; O2SAT 98; BMI 26.2
== END 2025-05-07 15:53 | disposition home or self-care (01) ==
LOC: HO.HPS 15:07
PROVIDERS: PCP Internal Medicine; Visit Provider Hospitalist
DX: G47.33 Obstructive sleep apnea (adult) (pediatric) (principal); J45.20 Mild intermittent asthma, uncomplicated; J30.9 Allergic rhinitis, unspecified
CPT/HCPCS: 99214

== ENCOUNTER → 2025-05-07 15:06 | Outpatient (BNVA) | payer BC, SELFPAY | PROVIDERS: PCP Internal Medicine; Visit Provider Hospitalist | DX: G47.33 Obstructive sleep apnea (adult) (pediatric) (principal); J45.20 Mild intermittent asthma, uncomplicated; J30.9 Allergic rhinitis, unspecified; Z13.89 Encounter for screening for other disorder ==

== ENCOUNTER 2025-05-29 07:30 | Outpatient (REF) | payer BC, SELFPAY ==
--- NOTE | ~2025-05-29 | MM_ITS ---
EXAMINATION: MM SCREENING DIGITAL BREAST TOMOSYNTHESIS, BILATERAL CLINICAL INFORMATION: Screening. Asymptomatic. COMPARISON: Comparison made to multiple prior, most recent May 27, 2024, and most remote December 01, 2016. TECHNIQUE: Digital breast tomosynthesis is performed in mediolateral oblique and craniocaudal views along with computer-aided detection (CAD). Synthesized 2D images are generated from the tomosynthesis. FINDINGS: BREAST COMPOSITION: The breasts are heterogeneously dense, which may obscure small masses. RIGHT BREAST: No significant masses, suspicious calcifications or other abnormalities are seen. LEFT BREAST: History of previous excisional biopsy. No significant masses, suspicious calcifications or other abnormalities are seen. MM/MM tomosynthesis screening BI IMPRESSION: BILATERAL BREASTS: Benign, no mammographic evidence of malignancy. Normal interval follow-up is recommended in 12 months. ASSESSMENT: BI-RADS: Category 2: Benign RECOMMENDATION: Routine annual mammography screening. FOLLOW-UP: 1 year F/U This examination should not preclude the clinical evaluation of a suspicious palpable abnormality. This patient's information was entered into a reminder system with a target due date for their next mammogram. Electronically signed by: Genesis Joya MD 06/01/2025 08:13 AM EDT
--- OUTSIDE RECORDS SUMMARY | 2025-05-29 07:33 | XMS_ITS | Patient Health Record ---
Author Organization 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 Name Role Phone Ed CURIEL, Karina Primary Care Provider Keith Marquez [phone] Reason For Referral No Information Plan Of Treatment No Information Insurance Providers Payer Name Payer Address Payer Phone Subscriber Number Group Number Insured Name Patient Relationship to Insured Coverage Start Date Coverage End Date [facility] [employer] [facility] [address] [place] [address] [id number] DIEGO MAZA Self - patient is the insured Medical (General) History Medical History History ICD Code colonoscopy 03-20-2011 rectal polyp asthma Surgical History Surgery Date(Month/Year) hysterectomy for fibroids hemorrhoidectomy broken leg surgery
== END 2025-05-29 07:31 | disposition home or self-care (01) ==
LOC: HO.MAMMO 07:30
PROVIDERS: Visit Provider Internal Medicine
DX: Z12.31 Encounter for screening mammogram for malignant neoplasm of breast (principal)
CPT/HCPCS: 77063; 77067

== ENCOUNTER → 2025-05-29 07:45 | Outpatient (BNV) | payer BC, SELFPAY | PROVIDERS: Visit Provider Radiology Body Imaging | DX: Z12.31 Encounter for screening mammogram for malignant neoplasm of breast (principal) | CPT/HCPCS: 77063; 77067 ==

== ENCOUNTER 2025-06-30 11:11 | Outpatient (AMB) | payer BC, SELFPAY ==
--- NOTE | 2025-06-30 11:17 | A.OFFVIS_ITS ---
Vital Signs 06/30/25 11:18 Height 5 ft 6 in Weight 160 lb BMI 25.8 BP 142/86 H Blood Pressure Location Lt brachial Position Sitting Pulse 88 Pulse Oximetry (%) 98 Oxygen Delivery Method Room Air Intake Visit Reasons: positive cologaurd Intake Note: Patient new consult for positive cologuard Patient cc: abdominal bloating, nauseas, and constipation with some bloody stool on and off. 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 Accompanied by: Family/Other Allergies tiotropium (From Spiriva with HandiHaler) Adverse Reaction (Intermediate, Verified 05/07/25 15:14) Anxiety Medication List - Last Reconciled 06/30/25 by Reina Newell CNP albuterol sulfate 2.5 mg inhalation Q4-6H PRN albuterol sulfate 90 mcg/actuation 2 puffs inhalation Q4-6H PRN aspirin (Adult Low Dose Aspirin) 81 mg PO DAILY atorvastatin 10 mg PO DAILY cetirizine (All Day Allergy (cetirizine)) 10 mg PO BEDTIME PRN inhalational spacing device (BreatheRite MDI Spacer) As directed montelukast 10 mg PO BEDTIME multivitamin 1 tab PO DAILY nebulizers As directed HPI HPI positive cologaurd: Details: Patient is a 60-year-old female with PMH of hyperlipidemia, asthma, THOMAS, history of PE on aspirin. Referred by PCP for further evaluation of positive Cologuard. Positive Cologuard test collected in April 06, 2025. She reports regular bowel movements, typically 1?2 times per day, but longstanding tendency toward hard stools, requiring daily stool softener use since hemorrhoid surgery approximately 15 years ago. Intermittent rectal bleeding is noted, mostly during wiping, though occasionally in the toilet, and she attributes this to ongoing hemorrhoidal symptoms. She denies change in stool frequency, overt constipation, or diarrhea. Over the past two months, she has experienced intermittent episodes of morning nausea and upper abdominal burning sensation, particularly after breakfast and orange juice intake, with symptoms resolving spontaneously after a short interval and are not daily. She does not report vomiting, weight loss, early satiety, abdominal pain (aside from the burning/?heat? sensation), dysphagia, or regurgitation. Appetite remains stable. No GERD or gallbladder disorder previously diagnosed. No recent medication changes or travel. No prior cancer diagnosis, and prior colonoscopies (including one in 2014) have reportedly been normal. Relevant comorbid conditions include hyperlipidemia (on atorvastatin), pulmonary history (requiring albuterol neb/inhaler and daily aspirin), and a history of adverse reaction to anesthesia characterized by significant nausea (managed with anti-emetic patch during procedures). No family history of colon or stomach cancer in first-degree relatives. Patient denies: fever/chills, vomiting, appetite changes, regurgitation, dyspha mitul, unintentional wt loss, ab pain or melena/hematochezia. Social hx: -ETOH use Wine almost daily, up to 4 glasses/day (approx. ? 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 Brother No problems noted. Sister No problems noted. Social History Housing: House Alcohol intake: current Alcohol type: wine Patient Tobacco Use Status: Never used Tobacco e-Cigarette/Vaping Use: Never Used service: No Current occupational status: employed Current occupational exposures/hazards: No Cognitive needs: No Hearing needs: No Vision needs: Yes Review of Systems Const Reports as per HPI ENT Reports as per HPI Card Reports as per HPI Resp Reports as per HPI GI Reports as per HPI Reports as per HPI Physical Exam Vital Signs: Last Vital Signs Pulse 88 06/30/25 11:18 BP 142/86 H 06/30/25 11:18 Pulse Ox 98 06/30/25 11:18 Oxygen Delivery Method Room Air 06/30/25 11:18 BMI result Body Mass Index 25.8 Const General: healthy appearing, no acute distress and well developed Nutritional Appearance: average body habitus Orientation/consciousness: patient oriented x3 HEENT Head: Yes normal to inspection, Yes normocephalic and Yes atraumatic Face and sinus: Yes normal facial exam Eyes General: appearance normal, both eyes and all related structures Neck Neck: Yes normal visual inspection Resp Effort & Inspection: normal respiratory effort, able to speak in complete sentences, no tracheal deviation and symmetric chest movement Auscultation: clear to auscultation bilaterally Cardio Jugular venous distension: no JVD Rate: regular rate Rhythm: regular rhythm Heart sounds: S1 normal heart sound present, S2 normal heart sound present, no gallops and no murmurs GI Inspection: Yes normal to inspection and No distended Palpation (GI): Soft to palpation, not firm, nontender and No hepatosplenomegaly present Auscultation: normal bowel sounds Neuro General: patient oriented x3 Gait exam (Neuro): Normal gait present Psych Appearance: grossly normal Mental Status: mental status grossly normal Speech and movement: Normal speech and movement present Affect: normal affect Attitude: cooperative Thought process: Normal thought process present Thought content: Normal thought content present Insight: Good insight present (Psych) Judgement: Good judgement present (Psych) Assessment & Plan Assessment & Plan (1) Positive colorectal cancer screening using Cologuard test: Comment: 12/30/14 Colonoscopy (Dr. Barnes) complete with excellent prep-normal colon. Recommendations for repeat in 10 years. Code(s): R19.5 - Other fecal abnormalities Category: Medical Plan: Positive screening result 04/06/25, history of rectal bleeding, need to rule out neoplasia, nathen. with interval >5 years since last known colonoscopy Additional Testing: - Colonoscopy (ordered, to be scheduled within 3?6 months of positive test, ideally before ) Medication Management: None specific at this time Lifestyle Recommendations: -Two docusate tablets taken HS starting 3 nightes before prep. AND -Standard bowel PEG prep instructions provided Patient educated on scheduling process, procedure preparation, including avoiding certain foods (avoid red/blue/purple dyes) and ensuring clear liquid intake Advised on necessity for ride post-procedure due to sedation. Follow-Up: Post-procedure review; earlier GI contact if new or worsening symptoms arise (2) Acid reflux: Code(s): K21.9 - Gastro-esophageal reflux disease without esophagitis Category: Medical Qualifiers: Esophagitis presence: esophagitis presence not specified Qualified Code(s): K21.9 - Gastro-esophageal reflux disease without esophagitis Plan: Recent onset, likely GERD/gastritis vs. dietary triggers vs. less likely biliary or infectious etiology; not daily, no alarm symptoms Additional Testing: - Esophagogastroduodenoscopy (EGD) ordered (to be done at time of colonoscopy) - H. pylori urea breath test (ordered, to be completed after fasting >= 1hr, no recent PPI use) - RUQ abdominal ultrasound ordered (to assess gallbladder pathology) Medication Management: No empiric Rx started; pt prefers to await results and minimize meds unless symptoms worsen Lifestyle Recommendations: Avoid dietary triggers (spicy, acidic [OJ], caffeine, alcohol), optimize hydration, remain upright post-meals, avoid overeating; light physical activity (e.g., post-meal walks) encouraged Follow-Up: Await diagnostic workup; intervene if symptom frequency/severity increases (3) Constipation: Code(s): K59.00 - Constipation, unspecified Category: Medical Qualifiers: Constipation type: unspecified constipation type Qualified Code(s): K59.00 - Constipation, unspecified Plan: Ongoing need for stool softener since hemorrhoid surgery; no evidence of worsening Additional Testing: None beyond current planned colonoscopy Medication Management: Continue current stool softener; ensure adequate hydration Lifestyle Recommendations: Increase water intake; fiber as tolerated; regular physical activity Follow-Up: Monitor with ongoing GI care Plan Follow-up after endoscopy or sooner as needed Time: I spent a total of 45 minutes on the date of encounter which includes: Preparing to see the patient (reviewed previous documentation, test results and medical history) Performing a medically appropriate exam and/or evaluation Ordering medications, tests, and procedures Documenting clinical information in the health record Orders: Orders US abdomen complete Today K21.9 - Gastro-esophageal reflux disease without esophagitis, R10.13 - Epigastric pain H Pylori Breath Test Today K21.9 - Gastro-esophageal reflux disease without esophagitis, R10.13 - Epigastric pain Referrals GI Procedure Notification K21.9 - Gastro-esophageal reflux disease without esophagitis, R19.5 - Other fecal abnormalities Medications: New bisacodyl Take two tablets nightly starting 3 days before prep 10 mg (2 x 5 mg) PO ONCE 6 tabs 0RF 3 days bisacodyl Take per colonoscopy instructions 20 mg (4 x 5 mg) PO ONCE 4 tabs 0RF simethicone (Gas Relief (simethicone)) per colonoscopy prep instructions 500 mg (4 x 125 mg) PO ONCE 4 caps 0RF abdominal distention peg 3350-electrolytes 236-22.74-6.74 -5.86 gram until fecal effluent is clear 240 mL PO ONCE 4,000 mL 0RF Coding Level of Care Code New Pt New Pt Level 4 (19707) Patient Type New Diagnoses Positive colorectal cancer screening using Cologuard test R19.5 Gastroesophageal reflux disease, unspecified whether esophagitis present K21.9 Esophagitis presence: esophagitis presence not specified Constipation, unspecified constipation type K59.00 Constipation type: unspecified constipation type
[2025-06-30 11:18] VITALS: BP 142/86; PULSE 88; O2SAT 98; BMI 25.8
--- OUTSIDE RECORDS SUMMARY | 2025-06-30 14:10 | XMS_ITS | Patient Health Record ---
Author Organization [facility] Address [address] [place] [address] Care Team Providers Care Seo Assistant Name Role Phone Ed CURIEL, Karina Primary Care Provider Keith Marquez [phone] Reason For Referral No Information Plan Of Treatment No Information Insurance Providers Payer Name Payer Address Payer Phone Subscriber Number Group Number Insured Name Patient Relationship to Insured Coverage Start Date Coverage End Date [facility] PROFESSIONAL CLAIMS [address] [place] [address] [id number] DIEGO MAZA Self - patient is the insured Medical (General) History Medical History History ICD Code colonoscopy 03-20-2011 rectal polyp asthma Surgical History Surgery Date(Month/Year) hysterectomy for fibroids hemorrhoidectomy broken leg surgery
== END 2025-06-30 11:59 | disposition home or self-care (01) ==
LOC: HO.HGI 11:12
PROVIDERS: PCP Internal Medicine; Visit Provider Nurse Practitioner Family
DX: R19.5 Other fecal abnormalities (principal); K21.9 Gastro-esophageal reflux disease without esophagitis; K59.00 Constipation, unspecified
CPT/HCPCS: 99204

== ENCOUNTER 2025-07-05 08:08 | Outpatient (AMB) | payer BC, SELFPAY ==
--- OUTSIDE RECORDS SUMMARY | 2025-07-05 08:21 | XMS_ITS | Patient Health Record ---
Author Organization [facility] Address [address] [place] [address] Care Team Providers Care Forms Analysis Manager Name Role Phone Ed CURIEL, Karina Primary Care Provider Keith Marquez [phone] Reason For Referral No Information Plan Of Treatment No Information Insurance Providers Payer Name Payer Address Payer Phone Subscriber Number Group Number Insured Name Patient Relationship to Insured Coverage Start Date Coverage End Date [facility] PROFESSIONAL CLAIMS [address] [place] [address] [id number] DIEGO MAZA Self - patient is the insured Medical (General) History Medical History History ICD Code colonoscopy 03-20-2011 rectal polyp asthma Surgical History Surgery Date(Month/Year) hysterectomy for fibroids hemorrhoidectomy broken leg surgery
--- NOTE | 2025-07-05 08:22 | AM.OFFVISNUR ---
Intake Visit Reasons: h pylori Intake Note: Pt presents for H Pylori BT. Protocols reviewed with pt and confirmed to be followed. Pt advised of instructions for the test and began testing at 0820. Testing was concluded at 0835. No questions or additional concerns per pt at the end of testing. Advised pt that we will contact them with results when they are obtained. Live Source Operator Required: No Accompanied by: Self / Same As Patient Allergies tiotropium (From Spiriva with HandiHaler) Adverse Reaction (Intermediate, Verified 05/07/25 15:14) Anxiety Assessment & Plan Assessment & Plan (1) Acid reflux: Code(s): K21.9 - Gastro-esophageal reflux disease without esophagitis Category: Medical Qualifiers: Esophagitis presence: esophagitis presence not specified Qualified Code(s): K21.9 - Gastro-esophageal reflux disease without esophagitis (2) Epigastric abdominal pain: Code(s): R10.13 - Epigastric pain Category: Medical Coding Level of Care Code Established Pt Procedure Only Patient Type Established Diagnoses Gastroesophageal reflux disease, unspecified whether esophagitis present K21.9 Esophagitis presence: esophagitis presence not specified Epigastric abdominal pain R10.13
== END 2025-07-05 08:50 | disposition home or self-care (01) ==
LOC: HO.HGI 08:09
PROVIDERS: PCP Internal Medicine; Visit Provider Nurse Practitioner Family
DX: K21.9 Gastro-esophageal reflux disease without esophagitis (principal); R10.13 Epigastric pain

== ENCOUNTER 2025-07-05 08:08 | Outpatient (REF) | payer BC, SELFPAY ==
--- OUTSIDE RECORDS SUMMARY | 2025-07-06 18:11 | XMS_ITS | Patient Health Record ---
Author Organization [facility] Address [address] [place] [address] Care Team Providers Care Talent Program Manager Name Role Phone Ed CURIEL, Karina Primary Care Provider Keith Marquez [phone] Reason For Referral No Information Plan Of Treatment No Information Insurance Providers Payer Name Payer Address Payer Phone Subscriber Number Group Number Insured Name Patient Relationship to Insured Coverage Start Date Coverage End Date [facility] PROFESSIONAL CLAIMS [address] [place] [address] [id number] DIEGO MAZA Self - patient is the insured Medical (General) History Medical History History ICD Code colonoscopy 03-20-2011 rectal polyp asthma Surgical History Surgery Date(Month/Year) hysterectomy for fibroids hemorrhoidectomy broken leg surgery
== END 2025-07-05 08:09 | disposition home or self-care (01) ==
LOC: HO.LNP 08:08
PROVIDERS: PCP Internal Medicine; Visit Provider Nurse Practitioner Family
DX: K21.9 Gastro-esophageal reflux disease without esophagitis (principal); R10.13 Epigastric pain
CPT/HCPCS: 83013; 99211

== ENCOUNTER 2025-07-18 19:10 | Emergency (ER) | payer BC, SELFPAY ==
[2025-07-18 19:28] VITALS: BP 135/73; PULSE 86; RESP 20; TEMP 37; O2SAT 95; BMI 26.5
--- NOTE | 2025-07-18 19:33 | ED_ITS ---
HPI - Female Genitourinary General Chief complaint: Urogenital-Female Stated complaint: Urinary Symptoms Time Seen by Provider: 07/18/25 20:40 Source: patient Mode of arrival: ambulatory Limitations: no limitations History of Present Illness ED Provider: Dr. Sierra HPI Narrative: This is a 60-year-old female presented hospital today for sudden onset of dysuria. Patient stated that this is a similar feeling to her previous diagnosis of UTI. Patient has increased urinary frequency. She stated that she is not making much urine however he feels the need to urinate a lot. Denies any fever. Denies any flank pain. She does have low back pain. Patient stated that she does have chronic low back pain. Related Data Home Medications ?Medication ?Instructions ?Recorded ?Confirmed albuterol sulfate 2.5 mg/3 mL 2.5 mg inhalation Q4-6H PRN 02/09/21 06/30/25 (0.083 %) solution for nebulization aspirin 81 mg tablet,delayed 81 mg PO DAILY 08/23/21 1 release (Adult Low Dose Aspirin) multivitamin 1 tab PO DAILY 08/23/2106/03 nebulizers 10/05/22 06/30/25 Previous Rx's ?Medication ?Instructions ?Recorded inhalational spacing device #1 ea 02/09/21 (BreatheRite MDI Spacer) cetirizine 10 mg tablet (All Day 10 mg PO BEDTIME PRN allergy 11/23/24 Allergy (cetirizine)) symptoms #90 tabs montelukast 10 mg tablet 10 mg PO BEDTIME #90 tabs albuterol sulfate 90 mcg/actuation 2 puff inhalation Q 4-6H PRN 03/22/25 aerosol inhaler shortness of breath or wheez ing #8.5 grams atorvastatin 10 mg tablet 10 mg PO DAILY #90 tabs 03/03 09/26 bisacodyl 5 mg tablet,delayed 10 mg (2 x 5 mg) PO ONCE 3 days #6 06/30/25 release tabs bisacodyl 5 mg tablet,delayed 20 mg (4 x 5 mg) PO ONCE #4 tabs 06/30/25 release peg 3350-electrolytes 236 240 ml PO ONCE #4,000 mL gram-22.74 gram-6.74 gram-5.86 gram solution simethicone 125 mg capsule (Gas 500 mg (4 x 125 mg) PO ONCE 06/30/25 Relief (simethicone)) abdominal distention #4 caps cephalexin 500 mg capsule 500 mg PO QID 7 days #28 cap s 07/18/25 Allergies Allergy/AdvReac Type Severity Reaction Status Date / Time tiotropium (From Spiriva AdvReac Intermediate Anxiety Verified 07/18/25 19:30 with HandiHaler) Review of Systems 2 Review of Systems: Pertinent review of systems as mentioned in HPI. All other system otherwise negative. [facility] Past Medical History [facility] Narrative: UTI Medical History (Updated 07/18/25 @ 21:25 by Agata Sierra DO) Constipation Epigastric abdominal pain Acid reflux Positive colorectal cancer screening using Cologuard test Dry eyes, bilateral Personal history of COVID-19 Chronic allergic rhinitis THOMAS (obstructive sleep apnea) Chronic [id number] syndrome History of COVID-19 Mixed dyslipidemia Mild intermittent asthma Pulmonary embolism Surgical History (Updated 06/30/25 @ 11:21 by Marisol Hunter) History of colposcopy H/O breast biopsy History of partial hysterectomy H/O hemorrhoidectomy Family History Family History Father Diabetes mellitus Mother Arthritis Maternal Grandmother Breast cancer Maternal Aunt Breast cancer Brother No problems noted. Brother No problems noted. Sister No problems noted. Social History Social History Housing: House Alcohol intake: current Alcohol intake frequency: 3 or more drinks per day Alcohol type: wine Patient Tobacco Use Status: Never used Tobacco Smoked in Last 30 Days: No e-Cigarette/Vaping Use: Never Used Use of substances other than those prescribed or required for medical reasons: No Advance Directives: No Advance Directives Information Provided: No Patient : No service: No Current occupational status: employed Current occupational exposures/hazards: No Cognitive needs: No Hearing needs: No Vision needs: Yes Physical Exam 2 Exam: Exam: General: Pleasant, no distress, interacting appropriately Head: Normacephalic, atraumatic ENT: oral mucosa moist, neck supple, no tracheal deviation Cardiovascular: regular rate, regular rhythm, no murmurs, rubbing, gallops Respiratory: CTAB, no wheeze, rales, rhonchi Gastrointestinal: Soft, non distended, non tender, non guarding, no CVA tenderness on percussion Extremities: No limb pain or swelling, no calf tenderness Neurological: Awake and alert, no facial droop noted Skin: Warm and dry Psychiatric: Appropriate mood and thoughts Vital Signs: Vital Signs: Last Vital Signs Temp 97.9 F 07/18/25 21:31 Pulse 70 07/18/25 21:31 Resp 14 07/18/25 21:31 BP 124/80 07/18/25 21:31 Pulse Ox 98 07/18/25 21:31 O2 Del Method Room Air 07/18/25 21:31 BMI result Body Mass Index 26.5 Course Course Course Narrative: This is a Rapid Medical Examination (RME) performed by Rachel Bush PA-C in triage. Full HPI, ROS, assessment and treatment plan per primary provider in the Main ED. Hx: 60 yo F here for eval of dysuria, urinary frequency and bilateral lower back pain x today. Plan: UA Medications Administered Discontinued Medications Generic Name Dose Route Start Last Admin Trade Name Freq PRN Reason Stop Dose Admin Cephalexin HCl 500 mg 07/18/25 21:19 07/18/25 21:24 Cephalexin 500 Mg Capsule PO 07/18/25 21:20 500 mg ONCE ONE Administration Medical Decision Making Medical Decision Making [facility] Narrative: This is a 60-year-old female presented hospital today for evaluation of dysuria. Patient's lab work is unremarkable. However UA did show signs of UTI. We will plan to prescribe patient some Keflex. I did review her sensitivity from previous UTI infection. She is only resistant to ciprofloxacin and she grew E coli. We will plan to discharge patient on Keflex course. Patient will be discharged home. Differential Diagnosis Differential Diagnoses: The differential diagnosis associated with the presentation includes UTI Lab Data [facility] Lab Attestation statement: I reviewed the patient's lab results. 07/18/25 19:43 07/18/25 19:43 Labs: Lab Results 07/18/25 Range/Units 19:43 WBC 5.7 (4.8-10.8) X10*3/uL RBC 2.67 L D (4.20-5.50) X10*6/uL Hgb 9.6 L D (12.0-16.0) g/dl Hct 28.7 L D (37.0-47.0) % MCV 107.5 H (80.0-98.0) fL MCH 36.0 H (27.0-33.0) pg MCHC 33.4 (31.0-35.0) g/dl RDW 16.5 H (11.0-16.0) % Plt Count 179 (160-400) X10*3/uL MPV 12.4 H (9.4-12.3) fL Immature Gran % (Auto) 0.3 (0.0-0.4) % Neut % (Auto) 54.0 (45-73) % Lymph % (Auto) 34.6 (20-40) % [place] % (Auto) 7.3 (2-11) % Eos % (Auto) 3.5 (0-4) % Baso % (Auto) 0.3 (0-2) % Lymph # (Auto) 2.0 (1.2-4.9) X10*3/uL [place] # (Auto) 0.4 (0.1-1.2) X10*3/uL Eos # (Auto) 0.2 (0.0-0.4) X10*3/uL Baso # (Auto) 0.0 (0.0-0.2) X10*3/uL Abs Immat Gran (auto) 0.02 (0.00-0.03) X10*3/uL Absolute Neuts (auto) 3.1 (2.0-8.3) x10*3/uL Absolute Nucleated RBC 0.000 (0.0-0.012) X10*3/uL Nucleated RBC % (auto) 0.0 (0.0-0.2) /100WBC Sodium 142 (135-145) mmol/L Potassium 3.3 (3.3-5.1) mmol/L Chloride 108 (96-108) mmol/L Carbon Dioxide 22 (22-29) mmol/L Anion Gap 15 (12-20) BUN 16 (9-16) mg/dL Creatinine 0.70 (0.5-1.4) mg/dL Estim Creat Clear Calc 86.0 Estimated GFR > 60 Random Glucose 87 (60-115) mg/dL Calcium 9.4 (8.4-10.2) mg/dL Total Bilirubin 0.7 (0.0-1.0) mg/dL AST 29 (5-31) U/L ALT 33 H (0-31) U/L Alkaline Phosphatase 106 (39-117) U/L Total Protein 7.5 (6.5-8.0) g/dL Albumin 4.7 (3.5-5.0) g/dL Urine Color Yellow Urine Appearance Clear Urine pH 5.5 (5.0-9.0) Ur Specific [place] <= 1.005 (1.005-1.025) Urine Protein Negative (Neg-Trace) mg/dL Urine Glucose (UA) Negative (Negative) mg/dL Urine Ketones Negative (Negative) mg/dL Urine Blood Negative (Negative) Urine Nitrite Negative (Negative) Ur Leukocyte Esterase Large (3+) H (Negative) Urine RBC 0-2 (0-2) /HPF Urine WBC 21-50 H (0-5) /HPF Ur Squamous Epith Cells 0-2 (0-2) /HPF Urine Bacteria None Seen (None Seen) Hyaline Casts 0-2 (0-2) /LPF Prescription Management I considered prescription management with: Antibiotic Discharge Plan Discharge Clinical Impression: UTI (urinary tract infection) Qualifiers: Urinary tract infection type: site unspecified Hematuria presence: without hematuria Qualified Code(s): N39.0 - Urinary tract infection, site not specified Patient Disposition: Home, Self-Care Instructions: Urinary Tract Infection in Women (ED) Prescriptions: New cephalexin 500 mg capsule 500 mg PO QID 7 Days Qty: 28 0RF No Action cetirizine [All Day Allergy (cetirizine)] 10 mg tablet 10 mg PO BEDTIME PRN (Reason: allergy symptoms) Qty: 90 3RF montelukast 10 mg tablet 10 mg PO BEDTIME Qty: 90 1RF albuterol sulfate 2.5 mg /3 mL (0.083 %) solution for nebulization 2.5 mg inhalation Q4-6H PRN (DME) BreatheRite MDI Spacer Spacer See Rx Instructions .ROUTE .MEDSUPPLY Qty: 1 0RF Rx Instructions: As directed aspirin [Adult Low Dose Aspirin] 81 mg tablet,delayed release (DR/EC) 81 mg PO DAILY multivitamin Tablet 1 tab PO DAILY (DME) nebulizers Misc See Rx Instructions .Route Rx Instructions: As directed simethicone [Gas Relief (simethicone)] 125 mg capsule 500 mg PO ONCE Qty: 4 0RF Rx Instructions: per colonoscopy prep instructions bisacodyl 5 mg tablet,delayed release (DR/EC) 20 mg PO ONCE Qty: 4 0RF Rx Instructions: Take per colonoscopy instructions peg 3350-electrolytes 236-22.74-6.74 -5.86 gram recon soln 240 ml PO ONCE Qty: 4000 0RF Rx Instructions: until fecal effluent is clear bisacodyl 5 mg tablet,delayed release (DR/EC) 10 mg PO ONCE 3 Days Qty: 6 0RF Rx Instructions: Take two tablets nightly starting 3 days before prep albuterol sulfate 90 mcg/actuation HFA aerosol inhaler 2 puff inhalation Q4-6H PRN (Reason: shortness of breath or wheezing) Qty: 8.5 5RF atorvastatin 10 mg tablet 10 mg PO DAILY Qty: 90 4RF Interventions: ED Discharge Assessment Last Done: 07/18/25 21:31 Discharge Date/Time: 07/18/25 21:31 Print Language: Guine[place]
[2025-07-18 19:49] LABS: Hematocrit 28.7 % (37.0-47.0); Hemoglobin 9.6 g/dl (12.0-16.0); Imm Gran Abs Auto 0.02 X10*3/uL (0.00-0.03); Imm Gran Pct Auto 0.3 % (0.0-0.4); Lymphocytes Absolute Auto 2.0 X10*3/uL (1.2-4.9); MANUAL DIFF FLAG NO; Mean Corpuscular HGB Conc 33.4 g/dl (31.0-35.0); Mean Corpuscular Hemoglobin 36.0 pg (27.0-33.0); Mean Corpuscular Volume 107.5 fL (80.0-98.0); NRBC Abs Auto 0.000 X10*3/uL (0.0-0.012); NRBC Pct Auto 0.0 /100WBC (0.0-0.2); Platelet Count 179 X10*3/uL (160-400); Red Blood Count 2.67 X10*6/uL (4.20-5.50); White Blood Count 5.7 X10*3/uL (4.8-10.8)
[2025-07-18 19:50] LABS: Appearance Urine Clear; Glucose Urine UA Negative (Negative); PH 5.5 (5.0-9.0); Specific Gravity - Urine <= 1.005 (1.005-1.025); UMIC TRIGGER UACC YES
[2025-07-18 19:55] LABS: UACC Culture Trigger YES
[2025-07-18 20:02] LABS: Alanine Aminotransferase 33 U/L (0-31); Albumin Level 4.7 g/dL (3.5-5.0); Alkaline Phosphatase 106 U/L (39-117); Anion Gap 15 (12-20); Aspartate Amino Transferase 29 U/L (5-31); Blood Urea Nitrogen 16 mg/dL (9-16); Calcium 9.4 mg/dL (8.4-10.2); Carbon Dioxide 22 mmol/L (22-29); Chloride 108 mmol/L (96-108); Creatinine Clr Calc Pharmacy 86.0; Estimated Glomerular Filt Rate > 60; Potassium 3.3 mmol/L (3.3-5.1); Sodium 142 mmol/L (135-145); Total Protein 7.5 g/dL (6.5-8.0)
--- OUTSIDE RECORDS SUMMARY | 2025-07-18 20:38 | XMS_ITS | Patient Health Record ---
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 Name Role Phone Ed CURIEL, Karina Primary Care Provider Keith Marquez [phone] Reason For Referral No Information Plan Of Treatment No Information Insurance Providers Payer Name Payer Address Payer Phone Subscriber Number Group Number Insured Name Patient Relationship to Insured Coverage Start Date Coverage End Date [facility] [employer] [address] [place] [address] [phone] [id number] DIEGO MAZA Self - patient is the insured Medical (General) History Medical History History ICD Code colonoscopy 03-20-2011 rectal polyp asthma Surgical History Surgery Date(Month/Year) hysterectomy for fibroids hemorrhoidectomy broken leg surgery
[2025-07-18 20:54] VITALS: BP 124/80; PULSE 70; RESP 14; TEMP 36.6; O2SAT 98
--- NOTE | 2025-07-18 20:58 | PC.NURSE ---
Patient awake and alert sitting upright on stretcher w/ family at bedside. skin pwd, resp even and non labored, speaking in full, clear sentences. reports waking up with lower back pain this morning and then started with urinary pain, frequency and urgency. denies fevers/chills. denies issues with moving bowels. VSS. awaiting initial provider eval.
[2025-07-18 21:31] VITALS: BP 124/80; PULSE 70; RESP 14; TEMP 36.6; O2SAT 98
== END 2025-07-18 21:31 | disposition home or self-care (01) ==
PROVIDERS: Physician Assistant Medical; Emergency Provider Student in an Organized Health Care Education/Training Program; PCP Internal Medicine
DX: N39.0 Urinary tract infection, site not specified (principal)
CPT/HCPCS: 36415; 80053; 81001; 85025; 87086; 87088; 87147; 87186; 99283; 99284

== ENCOUNTER 2025-08-09 11:16 | Outpatient (AMB) | payer BC, SELFPAY ==
--- NOTE | 2025-08-09 11:42 | AM.OFFWIN_ITS ---
Intake Vital Signs 08/09/25 11:43 Height 5 ft 6 in Weight 165 lb BMI 26.6 BP 130/80 Blood Pressure Location Lt brachial Position Sitting Pulse 86 Pulse Source Pulse Oximeter Temp 98.4 F Temp Source Oral Pulse Oximetry (%) 98 Oxygen Delivery Method Room Air Intake Visit Reasons: EP Discomfort/pain in left shoulder Intake Note: pt presents with LT shoulder pain for about 3 months Patient Tobacco Use Status: Never used Tobacco Allergies tiotropium (From Spiriva with HandiHaler) Adverse Reaction (Intermediate, Verified 08/09/25 11:46) Anxiety Do you need a note to return to daycare/school/sports/work: No HPI HPI Comments History of Present Illness Details 60-year-old female presents with left sh oulder pain for 3 months. Pain worsens with range of motion (ROM) and improves with rest. She has been taking keck-bmx-wbfryfz (OTC) medications with minimal relief. Denies any history of injury or trauma to the shoulder. No additional associated symptoms reported. 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 Brother No problems noted. Sister No problems noted. Social History Housing: House Alcohol intake: current Alcohol intake frequency: 3 or more drinks per day Alcohol type: wine Patient Tobacco Use Status: Never used Tobacco e-Cigarette/Vaping Use: Never Used service: No Current occupational status: employed Current occupational exposures/hazards: No Cognitive needs: No Hearing needs: No Vision needs: Yes Review of Systems Const All systems reviewed & are unremarkable except as noted in HPI and below Physical Exam Vital Signs: Last Vital Signs Temp 98.4 F 08/09/25 11:43 Pulse 86 08/09/25 11:43 BP 130/80 08/09/25 11:43 Pulse Ox 98 08/09/25 11:43 Oxygen Delivery Method Room Air 08/09/25 11:43 BMI result Body Mass Index 26.6 Const General: no acute distress Nutritional Appearance: well nourished Orientation/consciousness: patient oriented x3 Neuro General: patient oriented x3 Extrem Left upper extremity: shoulder/upper arm Details: inspection abnormal, tenderness Location: of the A-C joint and abnormal ROM Details: pain with active ROM and pain with passive ROM; no crepitus Assessment & Plan Assessment & Plan (1) Chronic left shoulder pain: Code(s): M25.512 - Pain in left shoulder; G89.29 - Other chronic pain Plan: Differentials: Chronic left shoulder pain, likely musculoskeletal in origin (considered rotator cuff tendinopathy, adhesive capsulitis, or osteoarthritis given age and chronicity). Ordered PT Ordered Meloxicam. Activity modification: Avoid activities that exacerbate pain. Patient education: Discuss chronic shoulder pain management, proper ergonomics, and importance of adherence to therapy. Orders: Orders PT Evaluation and Treatment Today G89.29 - Other chronic pain, M25.512 - Pain in left shoulder Medications: New meloxicam 15 mg PO DAILY 30 tabs 0RF G89.29 - Other chronic pain, M25.512 - Pain in left shoulder Coding Level of Care Code Est Pt Level 4 (07414) Diagnoses Chronic left shoulder pain M25.512; G89.29 Time Spent (min) 20
[2025-08-09 11:43] VITALS: BP 130/80; PULSE 86; TEMP 36.9; O2SAT 98; BMI 26.6
== END 2025-08-09 12:28 | disposition home or self-care (01) ==
PROVIDERS: PCP Internal Medicine; Visit Provider Nurse Practitioner Family
DX: M25.512 Pain in left shoulder (principal); G89.29 Other chronic pain